=== PATIENT | female | born 1965 | race Caucasian/White ===

== ENCOUNTER 2020-03-26 13:31 | Outpatient (REF) | payer OTHER, SELFPAY ==
[2020-03-26 16:27] LABS: MANUAL DIFF FLAG NO
[2020-03-26 16:31] LABS: Basophils Absolute Auto 0.1 X10*3/uL (0.0-0.2); Basophils Percent Auto 0.9 % (0-2); Eosinophils Absolute Auto 0.1 X10*3/uL (0.0-0.4); Eosinophils Percent Auto 0.9 % (0-4); Hematocrit 48.6 % (37-47); Hemoglobin 15.9 g/dl (12.0-16.0); Imm Gran Abs Auto 0.02 X10*3/uL (0.00-0.03); Imm Gran Pct Auto 0.2 % (0.0-0.4); Lymphocytes Absolute Auto 2.2 X10*3/uL (1.2-4.9); Lymphocytes Percent Auto 27.1 % (20-40); Mean Corpuscular HGB Conc 32.7 g/dl (31.0-35.0); Mean Corpuscular Volume 85.7 fL (80-98); Mean Platelet Volume 10.7 fL (9.4-12.3); Monocytes Absolute Auto 0.4 X10*3/uL (0.1-1.2); Monocytes Percent Auto 5.2 % (2-11); Neutrophils Absolute Auto 5.3 X10*3/uL (2.0-8.3); Neutrophils Percent Auto 65.7 % (45-73); Platelet Count 315 X10*3/uL (160-400); Red Blood Count 5.67 X10*6/uL (4.20-5.50); Red Cell Distribution Width 12.4 % (11.0-16.0)
[2020-03-26 16:54] LABS: Rheumatoid Factor < 15.0 IU/mL (<15.0)
[2020-03-26 16:55] LABS: Alanine Aminotransferase 33 U/L (0-31); Albumin Level 4.8 g/dL (3.5-5.0); Alkaline Phosphatase 69 U/L (39-117); Anion Gap 16 (12-20); Aspartate Amino Transferase 22 U/L (5-31); Bilirubin Total 0.6 mg/dL (0.0-1.0); Blood Urea Nitrogen 11 mg/dL (9-16); C Reactive Protein 0.16 mg/dL (< or = 0.50); Calcium 10.2 mg/dL (8.4-10.2); Carbon Dioxide 27 mmol/L (22-29); Chloride 102 mmol/L (96-108); Cholesterol 148 mg/dL; Estimated Glomerular Filt Rate > 60; Glucose Random 90 mg/dL (60-115); HDL Cholesterol 51 mg/dL; LDL Cholesterol Calculated 78 mg/dl; Potassium 4.3 mmol/l (3.3-5.1); Sodium 141 mmol/L (135-145); Total Protein 7.5 g/dL (6.5-8.0); Triglycerides 97 mg/dL; Uric Acid 5.2 mg/dL (2.4-5.7)
[2020-03-26 17:10] LABS: Erythrocyte Sedimentation Rate 2 MM/HR (0-20)
[2020-03-26 17:13] LABS: Ferritin 188 ng/mL (10-250); TSH reflex Free T4 1.15 mIU/mL (0.32-4.0)
[2020-03-27 21:47] LABS: Lyme Blot 3.46 index
[2020-03-28 13:27] LABS: Anti Nuclear Antibody Screen NEGATIVE (NEGATIVE); Antibody to SS-A Antigen <1.0 NEG AI (<1.0 NEG); Antibody to SS-B Antigen <1.0 NEG AI (<1.0 NEG)
[2020-03-29 12:03] LABS: Cyclic Citrullinated Peptide <16 UNITS
[2020-03-29 14:15] LABS: IgG P93 Abs REACTIVE; Lyme IgG Line Blot Interp. NEGATIVE (NEGATIVE)
== END 2020-03-26 13:32 | disposition home or self-care (01) ==
LOC: HO.HMGCLDS 13:31
PROVIDERS: PCP Nurse Practitioner Family; Visit Provider Nurse Practitioner Family
DX: M25.50 Pain in unspecified joint (principal); E78.5 Hyperlipidemia, unspecified
CPT/HCPCS: 36415; 80053; 80061; 82550; 82728; 84443; 84550; 85025; 85652; 86038; 86039; 86140; 86200; 86235; 86431; 86618

== ENCOUNTER 2020-07-06 12:17 | Outpatient (REF) | payer OTHER, SELFPAY ==
--- NOTE | ~2020-07-06 | XR_ITS ---
EXAMINATION: XR CERVICAL SPINE CLINICAL INFORMATION: Pain COMPARISON: None TECHNIQUE: 3 views of the cervical spine FINDINGS: Bone alignment is normal. No fracture or dislocation is seen. There is mild degenerative spondylosis at C3-C4 C4-C5 and C5-C6. Disc spaces are normal. Prevertebral soft tissues are normal. XR/XR cervical spine 3V IMPRESSION: Mild degenerative spondylosis from C3-C4 to C5-C6.
[2020-07-07 06:42] LABS: Lyme Blot 3.25 index
[2020-07-12 11:47] LABS: 18 KD (IgG) Band NON-REACTIVE; 23 KD (IgG) Band NON-REACTIVE; 23 KD (IgM) Band NON-REACTIVE; 28 KD (IgG) Band NON-REACTIVE; 30 KD (IgG) Band NON-REACTIVE; 39 KD (IgM) Band NON-REACTIVE; 41 KD (IgM) Band NON-REACTIVE; 45 KD (IgG) Band NON-REACTIVE; 58 KD (IgG) Band REACTIVE; 66 KD (IgG) Band NON-REACTIVE; 93 KD (IgG) Band REACTIVE; Lyme IgG Blot Interp NEGATIVE (NEGATIVE); Lyme IgM Blot Interp NEGATIVE (NEGATIVE)
== END 2020-07-06 12:18 | disposition home or self-care (01) ==
LOC: HO.XRAY 12:17
PROVIDERS: PCP Nurse Practitioner Family; Visit Provider Student in an Organized Health Care Education/Training Program
DX: M25.50 Pain in unspecified joint (principal); E78.5 Hyperlipidemia, unspecified; I10 Essential (primary) hypertension; E11.9 Type 2 diabetes mellitus without complications; F17.200 Nicotine dependence, unspecified, uncomplicated; Z88.6 Allergy status to analgesic agent; Z79.84 Long term (current) use of oral hypoglycemic drugs; Z79.899 Other long term (current) drug therapy
CPT/HCPCS: 36415; 72040; 86618; 99202

== ENCOUNTER → 2020-07-17 14:54 | Outpatient (BNVA) | payer OTHER, SELFPAY | PROVIDERS: PCP Nurse Practitioner Family; Visit Provider Student in an Organized Health Care Education/Training Program | DX: M25.50 Pain in unspecified joint (principal); M47.812 Spondylosis without myelopathy or radiculopathy, cervical region | CPT/HCPCS: 99212 ==

== ENCOUNTER 2020-08-02 10:00 | Outpatient (RCR) | payer OTHER, SELFPAY ==
--- NOTE | 2020-07-19 14:21 | MHC.PT.EP ---
[facility] [place] Office [place] [facility] [place] Office [address] Kayla Ambrocio [address] [phone] F: [phone] F: [phone] F: [phone] F: [phone] Physical Therapy Plan of Care Date of Evaluation: 07/19/20 Date of Surgery: n/a Diagnosis: Cervical spondylosis Assessment: Pt is a 55 y/o female referred to skilled PT services for cervical spondylosis. Of note, Pt also reports bilateral low back pain. However, she only has a script for cervical dysfunction and her neck bothers her more than her lower back per Pt. Pt states that her joint pain (including neck) started about 1 year ago. She was found to have a (+) Lyme Disease test, but has since tested negative after being treated with antibiotics. Assessment reveals decreased cervical AROM, impaired periscapular and rotator cuff strength, impaired posture/postural awareness, mild thoracic spinal hypomobility, pain, and tenderness to palpation. Related functional limitations include: remaining in one position for an extended period of time, sleeping, lifting, driving, reaching, reaching, and turning too fast. Pt will benefit from skilled PT services 1x/week (copay) for 10 weeks in order to reduce impairments and improve limitations. Frequency and Duration: The patient will be seen 1x/week for 10 weeks Short Term Goals: -In 3 weeks, Pt to improve cervical ROM in all impaired directions by at least 8 degrees. -In 4 weeks, Pt to report <6/10 pain w/ AROM of the cervical spine and shoulders. [facility] Goals: -In 9 weeks, Pt will demonstrate I w/ HEP consisting of upper body strengthening program, posture, and stretching. -In 10 weeks, Pt will improve NDI by at least 9 points. Treatment Plan: Modalities to reduce pain, spasms and effusion. Manual therapy to restore motion and function. Therapeutic exercise to improve strength and flexibility. Neuromuscular re-education for posture and balance. Therapeutic activities to return to functional activities of daily living. Electronically signed by: Marissa Reina PT, DPT Please sign and return to therapist. Thank you for your referral.
== END 2021-04-25 13:20 | disposition home or self-care (01) ==
LOC: HO.PT 10:00
PROVIDERS: Visit Provider Student in an Organized Health Care Education/Training Program
DX: M47.812 Spondylosis without myelopathy or radiculopathy, cervical region (principal)
CPT/HCPCS: 97110; 97140; 97161

== ENCOUNTER 2020-12-17 10:57 | Outpatient (REF) | payer OTHER, SELFPAY ==
[2020-12-17 14:28] LABS: Glucose Urine UA NEG (NEG); Leukocyte Esterase Urine NEG (NEG); Nitrite Urine NEG (NEG); Urine Blood NEG (NEG); Urine Ketones NEG (NEG); Urine Protein NEG (NEG-TRACE)
[2020-12-17 14:32] LABS: Appearance Urine CLEAR; Color Urine YELLOW
[2020-12-17 14:43] LABS: Microalbumin Urine < 5.0 mg/L
[2020-12-17 14:51] LABS: Estimated Average Glucose 140 mg/dL; Hemoglobin A1c % 6.5 %
[2020-12-17 14:59] LABS: TSH reflex Free T4 0.98 uIU/mL (0.32-4.0)
[2020-12-17 15:28] LABS: Alanine Aminotransferase 31 U/L (0-31); Albumin Level 5.1 g/dL (3.5-5.0); Alkaline Phosphatase 85 U/L (39-117); Anion Gap 18 (12-20); Aspartate Amino Transferase 24 U/L (5-31); Bilirubin Total 0.5 mg/dL (0.0-1.0); Blood Urea Nitrogen 14 mg/dL (9-16); Calcium 10.5 mg/dL (8.4-10.2); Carbon Dioxide 24 mmol/L (22-29); Chloride 101 mmol/L (96-108); Cholesterol 150 mg/dL; Estimated Glomerular Filt Rate > 60; Glucose Fasting 112 mg/dL (60-99); HDL Cholesterol 52 mg/dL; LDL Cholesterol Calculated 76 mg/dl; Potassium 5.4 mmol/L (3.3-5.1); Sodium 138 mmol/L (135-145); Triglycerides 112 mg/dL
== END 2020-12-17 10:58 | disposition home or self-care (01) ==
LOC: HO.HMGCLDS 10:57
PROVIDERS: PCP Nurse Practitioner Family; Visit Provider Nurse Practitioner Family
DX: E11.9 Type 2 diabetes mellitus without complications (principal)
CPT/HCPCS: 36415; 80053; 80061; 81003; 82043; 83036; 84443

== ENCOUNTER 2020-12-20 08:57 | Outpatient (REF) | payer OTHER, SELFPAY ==
[2020-12-20 11:38] LABS: Potassium 4.2 mmol/L (3.3-5.1)
== END 2020-12-20 08:58 | disposition home or self-care (01) ==
LOC: HO.HMGCLDS 08:57
PROVIDERS: PCP Nurse Practitioner Family; Visit Provider Nurse Practitioner Family
DX: E87.5 Hyperkalemia (principal)
CPT/HCPCS: 36415; 84132

== ENCOUNTER 2021-01-31 10:28 | Outpatient (REF) | payer OTHER, SELFPAY ==
--- NOTE | ~2021-01-31 | MM_ITS ---
EXAMINATION: MM SCREENING DIGITAL BREAST TOMOSYNTHESIS, BILATERAL CLINICAL INFORMATION: Screening. Asymptomatic. The lifetime risk of breast cancer based on the Tyrer-Cuzick Model is 6%. COMPARISON: Mammography: 10/15/2018, 10/14/2015, 05/04/2014, 04/17/2014; diagnostic right breast ultrasound 11/13/2015, diagnostic left breast ultrasound 05/04/2014. TECHNIQUE: Digital breast tomosynthesis is performed in both the craniocaudal and mediolateral oblique views along with computer-aided detection (CAD). Synthesized 2D images are generated from the tomosynthesis. FINDINGS: There are scattered areas of fibroglandular density (ACR BI-RADS breast composition Category b). Bilateral nodularity and fibrocystic changes are decreased over time since 2013. Dominant nodule/cyst right breast mid 9:00 position is substantially decreased as well since prior study 2018. There is no interval dominant mass or architectural abnormality or developing density. No abnormal calcifications. The axilla and skin contours are unremarkable. MM/MM tomosynthesis screening BI IMPRESSION: Fibrocystic changes decreased since prior studies. No significant changes. ASSESSMENT: BI-RADS 2: Benign RECOMMENDATION: Routine annual mammography screening. This patient's information was entered into a reminder system with a target due date for their next mammogram.
== END 2021-01-31 10:29 | disposition home or self-care (01) ==
LOC: HO.MAMMO 10:28
PROVIDERS: Visit Provider Nurse Practitioner Family
DX: Z12.31 Encounter for screening mammogram for malignant neoplasm of breast (principal)
CPT/HCPCS: 77063; 77067

== ENCOUNTER 2021-05-02 09:02 | Outpatient (REF) | payer MEDICAID, SELFPAY ==
[2021-05-02 11:36] LABS: Appearance Urine CLEAR; Color Urine YELLOW; Glucose Urine UA NEG (NEG); Leukocyte Esterase Urine NEG (NEG); Nitrite Urine NEG (NEG); PH 5.5 (5.0-8.0); Urine Blood NEG (NEG); Urine Ketones NEG (NEG); Urine Protein NEG (NEG-TRACE)
[2021-05-02 11:40] LABS: Estimated Average Glucose 154 mg/dL
[2021-05-02 12:13] LABS: Alanine Aminotransferase 30 U/L (0-31); Albumin Level 4.6 g/dL (3.5-5.0); Alkaline Phosphatase 74 U/L (39-117); Anion Gap 13 (12-20); Aspartate Amino Transferase 22 U/L (5-31); Bilirubin Total 0.4 mg/dL (0.0-1.0); Blood Urea Nitrogen 13 mg/dL (9-16); Calcium 10.1 mg/dL (8.4-10.2); Carbon Dioxide 28 mmol/L (22-29); Chloride 104 mmol/L (96-108); Cholesterol 160 mg/dL; Estimated Glomerular Filt Rate > 60; Glucose Fasting 120 mg/dL (60-99); HDL Cholesterol 49 mg/dL; LDL Cholesterol Calculated 80 mg/dl; Potassium 4.8 mmol/L (3.3-5.1); Sodium 140 mmol/L (135-145); Total Protein 7.5 g/dL (6.5-8.0); Triglycerides 158 mg/dL
[2021-05-02 12:31] LABS: Creatinine Urine 136.98 mg/dL; Microalbum/Creatinine Ratio Ur 5.8 ug/mg cr
== END 2021-05-02 09:03 | disposition home or self-care (01) ==
LOC: HO.HMGCLDS 09:02
PROVIDERS: PCP Nurse Practitioner Family; Visit Provider Nurse Practitioner Family
DX: Z00.00 Encounter for general adult medical examination without abnormal findings (principal); E11.9 Type 2 diabetes mellitus without complications
CPT/HCPCS: 36415; 80053; 80061; 81003; 82043; 83036; 84443

== ENCOUNTER 2021-06-12 08:05 | Outpatient (REF) | payer OTHER, SELFPAY ==
--- NOTE | ~2021-06-12 | MR_ITS ---
EXAMINATION: MR BRAIN WITHOUT CONTRAST CLINICAL INFORMATION: Dizziness and giddiness. COMPARISON: None available. TECHNIQUE: MRI of the brain was obtained using routine sequences without contrast. FINDINGS: No focal restricted diffusion is demonstrated to suggest acute or subacute cerebral ischemia. No evidence of acute or chronic hemorrhagic products on heme-sensitive imaging. Scattered periventricular and deep white matter T2 FLAIR hyperintensities predominantly within the left frontal lobe. The ventricles are normal in morphology and size. No abnormal mass effect. No midline shift. Normal appearance of the pituitary gland. Normal positioning of the cerebellar tonsils. Normal arterial and venous vascular flow voids are present. Normal, homogeneous marrow signal. Mild mucosal thickening of the paranasal sinuses. No signal abnormalities within the mastoids. MR/MR head/brain wo con IMPRESSION: 1. No acute intracranial abnormalities. 2. Mild nonspecific white matter changes predominantly within the left frontal lobe, most commonly seen in the setting of microangiopathy.
== END 2021-06-12 08:06 | disposition home or self-care (01) ==
LOC: HO.MRI 08:05
PROVIDERS: PCP Nurse Practitioner Family; Visit Provider Nurse Practitioner Family
DX: R42 Dizziness and giddiness (principal); H43.399 Other vitreous opacities, unspecified eye
CPT/HCPCS: 70551

== ENCOUNTER 2021-07-24 15:11 | Outpatient (REF) | payer OTHER, SELFPAY ==
[2021-07-24 16:27] LABS: MANUAL DIFF FLAG NO
[2021-07-24 16:44] LABS: Basophils Absolute Auto 0.1 X10*3/uL (0.0-0.2); Basophils Percent Auto 0.6 % (0-2); Eosinophils Absolute Auto 0.1 X10*3/uL (0.0-0.4); Eosinophils Percent Auto 0.8 % (0-4); Hematocrit 50.4 % (37.0-47.0); Hemoglobin 16.8 g/dl (12.0-16.0); Imm Gran Abs Auto 0.05 X10*3/uL (0.00-0.03); Imm Gran Pct Auto 0.4 % (0.0-0.4); Lymphocytes Absolute Auto 2.7 X10*3/uL (1.2-4.9); Mean Corpuscular HGB Conc 33.3 g/dl (31.0-35.0); Mean Corpuscular Hemoglobin 28.3 pg (27.0-33.0); Mean Corpuscular Volume 84.8 fL (80.0-98.0); Mean Platelet Volume 11.4 fL (9.4-12.3); Monocytes Absolute Auto 0.8 X10*3/uL (0.1-1.2); Monocytes Percent Auto 5.9 % (2-11); Neutrophils Absolute Auto 9.3 x10*3/uL (2.0-8.3); Neutrophils Percent Auto 71.3 % (45-73); Platelet Count 330 X10*3/uL (160-400); Red Blood Count 5.94 X10*6/uL (4.20-5.50)
[2021-07-24 16:45] LABS: Appearance Urine CLEAR; Color Urine YELLOW; Glucose Urine UA NEG (NEG); Leukocyte Esterase Urine NEG (NEG); Nitrite Urine NEG (NEG); Specific Gravity - Urine 1.015 (1.005-1.025); Urine Blood NEG (NEG); Urine Ketones NEG (NEG); Urine Protein NEG (NEG-TRACE)
[2021-07-24 17:05] LABS: Estimated Average Glucose 143 mg/dL; Hemoglobin A1c % 6.6 %
[2021-07-24 17:21] LABS: Alanine Aminotransferase 28 U/L (0-31); Albumin Level 5.1 g/dL (3.5-5.0); Alkaline Phosphatase 81 U/L (39-117); Anion Gap 19 (12-20); Aspartate Amino Transferase 22 U/L (5-31); Bilirubin Total 0.5 mg/dL (0.0-1.0); Blood Urea Nitrogen 17 mg/dL (9-16); Calcium 10.6 mg/dL (8.4-10.2); Carbon Dioxide 26 mmol/L (22-29); Chloride 98 mmol/L (96-108); Cholesterol 137 mg/dL; Estimated Glomerular Filt Rate > 60; Glucose Fasting 105 mg/dL (60-99); HDL Cholesterol 50 mg/dL; Potassium 4.5 mmol/L (3.3-5.1); Sodium 138 mmol/L (135-145)
[2021-07-24 17:31] LABS: LDL Cholesterol Calculated 58 mg/dl; Triglycerides 149 mg/dL
[2021-07-24 17:39] LABS: TSH reflex Free T4 1.76 uIU/mL (0.32-4.0)
[2021-07-26 01:01] LABS: Rubeola IgG (Measles) >300.00 AU/mL
== END 2021-07-24 15:12 | disposition home or self-care (01) ==
LOC: HO.HMGCLDS 15:11
PROVIDERS: PCP Nurse Practitioner Family; Visit Provider Nurse Practitioner Family
DX: Z01.84 Encounter for antibody response examination (principal); E11.9 Type 2 diabetes mellitus without complications; Z28.39 Other underimmunization status
CPT/HCPCS: 36415; 80053; 80061; 81003; 83036; 84443; 85025; 86735; 86762; 86765

== ENCOUNTER 2021-07-26 10:17 | Outpatient (REF) | payer OTHER, SELFPAY ==
[2021-07-26 11:37] LABS: MANUAL DIFF FLAG NO
[2021-07-26 11:51] LABS: Basophils Absolute Auto 0.1 X10*3/uL (0.0-0.2); Basophils Percent Auto 0.6 % (0-2); Eosinophils Absolute Auto 0.1 X10*3/uL (0.0-0.4); Eosinophils Percent Auto 1.1 % (0-4); Hemoglobin 15.7 g/dl (12.0-16.0); Imm Gran Abs Auto 0.04 X10*3/uL (0.00-0.03); Imm Gran Pct Auto 0.4 % (0.0-0.4); Lymphocytes Absolute Auto 2.4 X10*3/uL (1.2-4.9); Lymphocytes Percent Auto 22.5 % (20-40); Mean Corpuscular Hemoglobin 27.5 pg (27.0-33.0); Mean Corpuscular Volume 85.8 fL (80.0-98.0); Mean Platelet Volume 11.3 fL (9.4-12.3); Monocytes Absolute Auto 0.6 X10*3/uL (0.1-1.2); Monocytes Percent Auto 5.6 % (2-11); Neutrophils Absolute Auto 7.5 x10*3/uL (2.0-8.3); Neutrophils Percent Auto 69.8 % (45-73); Platelet Count 302 X10*3/uL (160-400); Red Blood Count 5.71 X10*6/uL (4.20-5.50); Red Cell Distribution Width 12.8 % (11.0-16.0); White Blood Count 10.8 X10*3/uL (4.8-10.8)
== END 2021-07-26 10:18 | disposition home or self-care (01) ==
LOC: HO.HMGCLDS 10:17
PROVIDERS: PCP Nurse Practitioner Family; Visit Provider Nurse Practitioner Family
DX: D72.829 Elevated white blood cell count, unspecified (principal)
CPT/HCPCS: 36415; 81219; 81270; 81279; 81339; 85025

== ENCOUNTER 2021-08-08 15:12 | Outpatient (REF) | payer OTHER, SELFPAY ==
[2021-08-08 16:24] LABS: MANUAL DIFF FLAG NO
[2021-08-08 16:27] LABS: Basophils Absolute Auto 0.1 X10*3/uL (0.0-0.2); Basophils Percent Auto 0.7 % (0-2); Eosinophils Absolute Auto 0.1 X10*3/uL (0.0-0.4); Eosinophils Percent Auto 0.9 % (0-4); Hematocrit 47.6 % (37.0-47.0); Hemoglobin 15.9 g/dl (12.0-16.0); Imm Gran Abs Auto 0.05 X10*3/uL (0.00-0.03); Imm Gran Pct Auto 0.4 % (0.0-0.4); Lymphocytes Absolute Auto 3.2 X10*3/uL (1.2-4.9); Lymphocytes Percent Auto 26.7 % (20-40); Mean Corpuscular HGB Conc 33.4 g/dl (31.0-35.0); Mean Corpuscular Hemoglobin 27.9 pg (27.0-33.0); Mean Corpuscular Volume 83.7 fL (80.0-98.0); Mean Platelet Volume 10.8 fL (9.4-12.3); Monocytes Absolute Auto 0.8 X10*3/uL (0.1-1.2); Monocytes Percent Auto 6.2 % (2-11); Neutrophils Absolute Auto 7.9 x10*3/uL (2.0-8.3); Neutrophils Percent Auto 65.1 % (45-73); Platelet Count 367 X10*3/uL (160-400); Red Blood Count 5.69 X10*6/uL (4.20-5.50); White Blood Count 12.1 X10*3/uL (4.8-10.8)
== END 2021-08-08 15:13 | disposition home or self-care (01) ==
LOC: HO.HMGCLDS 15:12
PROVIDERS: PCP Nurse Practitioner Family; Visit Provider Nurse Practitioner Family
DX: D72.829 Elevated white blood cell count, unspecified (principal)
CPT/HCPCS: 36415; 85025

== ENCOUNTER 2021-09-19 09:55 | Outpatient (REF) | payer OTHER, SELFPAY ==
[2021-09-19 10:43] LABS: MANUAL DIFF FLAG NO
[2021-09-19 11:30] LABS: Basophils Absolute Auto 0.1 X10*3/uL (0.0-0.2); Eosinophils Absolute Auto 0.1 X10*3/uL (0.0-0.4); Eosinophils Percent Auto 1.2 % (0-4); Hematocrit 47.8 % (37.0-47.0); Hemoglobin 15.5 g/dl (12.0-16.0); Imm Gran Abs Auto 0.05 X10*3/uL (0.00-0.03); Imm Gran Pct Auto 0.5 % (0.0-0.4); Lymphocytes Absolute Auto 2.1 X10*3/uL (1.2-4.9); Lymphocytes Percent Auto 20.6 % (20-40); Mean Corpuscular HGB Conc 32.4 g/dl (31.0-35.0); Mean Corpuscular Hemoglobin 27.5 pg (27.0-33.0); Mean Corpuscular Volume 84.9 fL (80.0-98.0); Mean Platelet Volume 10.4 fL (9.4-12.3); Monocytes Absolute Auto 0.6 X10*3/uL (0.1-1.2); Neutrophils Absolute Auto 7.3 x10*3/uL (2.0-8.3); Neutrophils Percent Auto 70.7 % (45-73); Platelet Count 340 X10*3/uL (160-400); Red Blood Count 5.63 X10*6/uL (4.20-5.50); Red Cell Distribution Width 12.8 % (11.0-16.0); White Blood Count 10.3 X10*3/uL (4.8-10.8)
== END 2021-09-19 09:56 | disposition home or self-care (01) ==
LOC: HO.LAB 09:55
PROVIDERS: Nurse Practitioner Family; Visit Provider Obstetrics & Gynecology
DX: D72.829 Elevated white blood cell count, unspecified (principal)
CPT/HCPCS: 36415; 85025

== ENCOUNTER → 2021-11-07 10:03 | Outpatient (BNVA) | payer OTHER, SELFPAY | PROVIDERS: PCP Nurse Practitioner Family; Visit Provider Nurse Practitioner | DX: D12.6 Benign neoplasm of colon, unspecified (principal); Z98.890 Other specified postprocedural states | CPT/HCPCS: 99202; 99212 ==

== ENCOUNTER 2022-01-11 13:05 | Outpatient (REF) | payer OTHER, SELFPAY ==
[2022-01-11 15:17] LABS: MANUAL DIFF FLAG NO
[2022-01-11 15:19] LABS: Basophils Absolute Auto 0.1 X10*3/uL (0.0-0.2); Basophils Percent Auto 1.1 % (0-2); Eosinophils Absolute Auto 0.1 X10*3/uL (0.0-0.4); Eosinophils Percent Auto 1.5 % (0-4); Hematocrit 44.7 % (37.0-47.0); Hemoglobin 14.7 g/dl (12.0-16.0); Imm Gran Abs Auto 0.02 X10*3/uL (0.00-0.03); Imm Gran Pct Auto 0.3 % (0.0-0.4); Lymphocytes Absolute Auto 1.5 X10*3/uL (1.2-4.9); Lymphocytes Percent Auto 19.6 % (20-40); Mean Corpuscular HGB Conc 32.9 g/dl (31.0-35.0); Mean Corpuscular Hemoglobin 27.6 pg (27.0-33.0); Mean Corpuscular Volume 83.9 fL (80.0-98.0); Mean Platelet Volume 10.5 fL (9.4-12.3); Monocytes Absolute Auto 0.7 X10*3/uL (0.1-1.2); Monocytes Percent Auto 9.4 % (2-11); Neutrophils Absolute Auto 5.1 x10*3/uL (2.0-8.3); Neutrophils Percent Auto 68.1 % (45-73); Platelet Count 346 X10*3/uL (160-400); Red Blood Count 5.33 X10*6/uL (4.20-5.50); Red Cell Distribution Width 12.8 % (11.0-16.0); White Blood Count 7.4 X10*3/uL (4.8-10.8)
[2022-01-11 15:29] LABS: Appearance Urine Clear; Color Urine Yellow; Glucose Urine UA Negative (Negative); Leukocyte Esterase Urine Trace (Negative); Nitrite Urine Negative (Negative); PH 5.5 (5.0-9.0); UMIC TRIGGER UACC YES; Urine Blood Negative (Negative); Urine Ketones Negative (Negative); Urine Protein Negative (Neg-Trace)
[2022-01-11 15:34] LABS: Bacteria Urine None Seen (None Seen); Hyaline Casts Urine 0-2 /LPF (0-2); RBC Urine 0-2 /HPF (0-2); Squamous Epithelial Cell Urine 0-2 /HPF (0-2); WBC Urine 0-5 /HPF (0-5)
[2022-01-11 15:41] LABS: Alanine Aminotransferase 33 U/L (0-31); Albumin Level 4.8 g/dL (3.5-5.0); Alkaline Phosphatase 83 U/L (39-117); Anion Gap 17 (12-20); Aspartate Amino Transferase 28 U/L (5-31); Bilirubin Total 0.4 mg/dL (0.0-1.0); Blood Urea Nitrogen 14 mg/dL (9-16); Calcium 9.6 mg/dL (8.4-10.2); Carbon Dioxide 22 mmol/L (22-29); Chloride 102 mmol/L (96-108); Cholesterol 140 mg/dL; Estimated Glomerular Filt Rate > 60; Glucose Fasting 105 mg/dL (60-99); HDL Cholesterol 51 mg/dL; LDL Cholesterol Calculated 71 mg/dl; Potassium 4.4 mmol/L (3.3-5.1); Sodium 137 mmol/L (135-145); Total Protein 7.6 g/dL (6.5-8.0); Triglycerides 92 mg/dL
[2022-01-11 16:02] LABS: TSH reflex Free T4 0.71 uIU/mL (0.32-4.0)
[2022-01-11 16:07] LABS: Estimated Average Glucose 146 mg/dL; Hemoglobin A1c % 6.7 %
== END 2022-01-11 13:06 | disposition home or self-care (01) ==
LOC: HO.HMGCLDS 13:05
PROVIDERS: PCP Nurse Practitioner Family; Visit Provider Nurse Practitioner Family
DX: E11.9 Type 2 diabetes mellitus without complications (principal)
CPT/HCPCS: 36415; 80053; 80061; 81001; 83036; 84443; 85025

== ENCOUNTER 2022-02-15 08:53 | Outpatient (REF) | payer OTHER, SELFPAY ==
--- NOTE | ~2022-02-15 | MM_ITS ---
EXAMINATION: MM SCREENING DIGITAL BREAST TOMOSYNTHESIS, BILATERAL CLINICAL INFORMATION: Screening. Asymptomatic. The lifetime risk of breast cancer based on the Tyrer-Cuzick Model is 6%. COMPARISON: Mammography: 01/31/2021, 10/15/2018, 11/13/2015 TECHNIQUE: Digital breast tomosynthesis is performed in both the craniocaudal and mediolateral oblique views along with computer-aided detection (CAD). Synthesized 2D images are generated from the tomosynthesis. FINDINGS: There are scattered areas of fibroglandular density (ACR BI-RADS breast composition Category b). Bilateral fibronodular and fibrocystic changes are symmetrically decreased since 2016. There is no significant mass or architectural abnormality or developing density. There are scattered round and some peripheral rim calcifications and vascular calcifications. The axilla and skin contours are unremarkable. No significant changes. MM/MM tomosynthesis screening BI IMPRESSION: No significant changes from prior studies. ASSESSMENT: BI-RADS 2: Benign RECOMMENDATION: Routine annual mammography screening. This patient's information was entered into a reminder system with a target due date for their next mammogram.
== END 2022-02-15 08:54 | disposition home or self-care (01) ==
LOC: HO.MAMMO 08:53
PROVIDERS: PCP Nurse Practitioner Family; Visit Provider Obstetrics & Gynecology
DX: Z12.31 Encounter for screening mammogram for malignant neoplasm of breast (principal)
CPT/HCPCS: 77063; 77067

== ENCOUNTER 2022-06-06 13:35 | Day surgery (SDC) | payer OTHER, SELFPAY ==
[2022-06-03 10:20] VITALS: BMI 29.4
[2022-06-06 14:12] VITALS: BP 111/72; PULSE 64; RESP 16; TEMP 36.8; O2SAT 98; BMI 27.4
[2022-06-06 14:18] LABS: Glucose, Whole Blood 101 mg/dL (60-115)
--- NOTE | 2022-06-06 14:30 | P.CONAN_ITS ---
HPI - Anesthesia Eval Consult details Narrative: For colonoscopy [facility] Active Problems Active Problems: All Active Problems (Updated 06/06/22 @ 13:57 by Billy Alvarenga RN) Joint pain (Acute) Polyarthralgia (Acute) Cervical spondylosis (Acute) Diabetes mellitus (Acute) Hyperkalemia (Acute) Physical exam (Acute) Screening for cervical cancer (Acute) Screening for breast cancer (Acute) Dizziness (Acute) Visual floaters (Acute) Immunizations incomplete (Acute) Anxiety as acute reaction to exceptional stress (Acute) Leukocytosis (Acute) Well woman exam (Acute) Anxiety (Acute) Tubular adenoma of colon (Acute) Dyslipidemia (Acute) Past Medical History Medical History (Updated 06/06/22 @ 13:57 by Billy Alvarenga RN) Dyslipidemia Essential hypertension History of anemia HTN (hypertension) Type 2 diabetes mellitus Family History Family History Father Unknown family medical history Mother Diabetes mellitus Sister Brain cancer Sister No problems noted. Son No problems noted. Daughter No problems noted. Daughter No problems noted. Daughter No problems noted. Family history of problems with anesthesia: No Surgical History Surgical History (Updated 06/03/22 @ 10:05 by Liz Freire RN) H/O colonoscopy History of tubal ligation History of Problems with Anesthesia: No Social History Social History Housing: House Alcohol intake: current Alcohol intake frequency: holidays/special occasions only Patient Tobacco Use Status: Former Tobacco user Quit Date: 2021 Tobacco use type: Cigarette Cigarette Packs Per Day: 0.75 e-Cigarette/Vaping Use: Never Used Second Hand Smoke Exposure: No Use of substances other than those prescribed or required for medical reasons: Yes Substance Use Frequency: Occasionally Have you been hit, kicked, punched, or otherwise hurt by someone within the past year? If so, by whom?: No Are you DNR?: No Advance Directives: No Advance Directives Information Provided: Yes (as above noted) Advance Directives on File: No Recently lost weight without trying: No Eating poorly because of decreased appetite: No Nutrition Risks: No Nutritional Risk Poor oral hygiene: No (upper partial) service: No Current occupational status: employed Current occupation: [employer] Current occupational exposures/hazards: Yes Cognitive needs: No Hearing needs: No Vision needs: No Meds Allergies Allergy/AdvReac Type Severity Reaction Status Date / Time aspirin Allergy Mild GI upset, Verified 04/30/22 10:20 nausea and vomiting Home Medications Medication Instructions Recorded Confirmed Last Taken Type blood sugar diagnostic #10 ea 01/26/20 04/30/22 Unknown History Exam Exam Date and Time: June 06, 2022 1430 Height,Weight and Vital Signs: Height 5 ft 4 in Weight 72.575 kg Last Vital Signs Temp 98.2 F 06/06/22 14:12 Pulse 64 06/06/22 14:12 Resp 16 06/06/22 14:12 BP 111/72 06/06/22 14:12 Pulse Ox 98 06/06/22 14:12 O2 Del Method 06/06/22 14:12 Pertinent Lab Results Pertinent Lab Results: Laboratory Tests 06/06/22 14:03 POC Glucose 101 Airway Mallampati Class: II TM Dist: >3cm Neck ROM: Full Heart: ok Lungs: ok Assessment and Plan Assessment Anesthesia Assessment: Anesthesia Plan Discussed and Chart Reviewed Final Anesthetic Review Family History of Problems with Anesthesia: No History of Problems with Anesthesia: No NPO: Yes ASA Class: II Final Preanesthetic Review: No Changes in Pt Med Stat, Meds/Allgs Chart Reviewed, Consent Obtained/Reviewed and Anes Risks/Benef Reviewed Patient Risk: Intermediate Procedure Risk: Low Anesthetic Plan Anesthetic Plan: MAC: and Agree w/ Assess. and Plan Disposition: Standard PACU
--- NOTE | 2022-06-06 14:31 | MHC.SHP ---
Pre-Procedural Eval Section A Date of Service: 06/06/22 The patient is an INPATIENT: No The History & Physical has been completed within 30 days and I have reviewed it.: No Section B Chief Complaint: screening, FU of colon polyps Details of Present Illness: colon cancer screening, follow-up of colon polyps Relevant Social History: Tobacco Use ( former smoker) Present Medications: see Short Stay Collaborative assessment Medical History: Significant History (Dyslipidemia Essential hypertension History of anemia Type 2 diabetes mellitus) History of Previous Operations: Relevant previous surgery/procedure and date(s) (History of tubal ligation) Allergies: Allergies Allergy/AdvReac Type Severity Reaction Status Date / Time aspirin Allergy Mild GI upset, Verified 04/30/22 10:20 nausea and vomiting Review of Systems Sugical H&P ROS: Negative: Constitution, Cardiovascular, Respiratory and Gastrointestinal Exam Surgical H&P Exam: Normal: Heart, Normal: Lungs, Normal: Extremities and Normal: Abdomen Plan Diagnosis/Plan: Unchanged I have reviewed the history and physical and performed a pertinent physical examination on my patient. No changes have occurred unless specified. Time Spent With Patient Time: Total time managing care of this patient today ____ minutes.
--- NOTE | 2022-06-06 14:38 | PM.OP ---
Brief Operative Note Date of Service: 06/06/22 Pre-op diagnosis: colon cancer screen, hx of colon polyps Post-op diagnosis: other ( COLON POLYPS, DIVERTICULOSIS, HEMORRHOIDS) Procedure: COLONOSCOPY TILL CECUM WITH BIOPSIES Surgeon: Aly Paredes MD Anesthesia: MAC Was an Family Service Worker used for this Procedure?: No Family Service Worker: Derrell Greene Estimated blood loss (mL): 0 Pathology: other (A- CECUM POLYP B- ASCENDING COLON POLYP C- TRANSVERSE COLON POLYP D- SIGMOID POLYP) Condition: stable Disposition: PACU
--- NOTE | 2022-06-06 14:39 | W.PM.OPN ---
Operative Note Operative Note Date of Service: 06/06/22 Narrative: Pre-op diagnosis: colon cancer screen, hx of colon polyps Post-op diagnosis:?other (? COLON POLYPS, DIVERTICULOSIS, HEMORRHOIDS) Surgeon: Aly Paredes MD Anesthesia:?MAC COLONOSCOPY TILL CECUM WITH BIOPSIES Consent: Indications for the procedure and potential complications of bleeding, perforation, reaction to medications and missed diagnosis were discussed with the patient and informed consent was obtained. Instrument: Olympus PCF H 190 L variable stiffness pediatric colonoscope Monitoring: Vital signs and clinical assessment, intermittent blood pressure monitoring, continuous EKG monitoring, Pulse oximetry and Carbon Dioxide monitoring were done throughout the procedure. Colon withdrawl time was 17 minutes. Procedure: The patient was placed in the left lateral decubitis position and pre-procedure medications were administered. After a digital rectal examination of the ano-rectum, the video colonoscope was inserted into the rectum and advanced through the colon to the cecum. The colonoscope was slowly withdrawn in a retrograde panoramic fashion and the colon mucosa was carefully examined including a retroflexed view of the rectum. Findings and interventions are described below. Procedure Difficulty: Without difficulty Findings: Terminal Ileum: Not evaluated Cecum: A 5-6 mm sessile polyp - removed with a cold bx Ascending Colon: A 2-3 mm sessile polyp - removed with a cold bx Transverse Colon: A 5-6 mm sessile polyp - removed with a cold bx Descending Colon: moderate diverticulosis Sigmoid Colon: A 4-5 mm sessile polyp - removed with a cold bx. Moderate diverticulosis Rectum: Normal Ano-rectum: Moderate internal hemorrhoids Colon preparation: Good after some irrigation Impression and Post Procedure Diagnosis: Colonoscopy Findings: Four small polyps removed Moderate diverticulosis seen in the left colon Moderate hemorrhoids on retroflexed exam. Plan: Await pathology results Patient has an appointment on 06/20/22 in the GI Clinic with Saba Husain NP. Repeat Colonoscopy interval based on path results - in 3-5 years if polyps are adenomatous and due to a hx of adenomatous colon polyps. Above findings were reviewed with the patient and colon polyps and diverticulosis handouts were given in the discharge area
[2022-06-06 15:15] VITALS: BP 107/66; PULSE 70; RESP 16; TEMP 36.5; O2SAT 95
[2022-06-06 15:27] VITALS: BP 111/61; PULSE 66; RESP 16; TEMP 36.8; O2SAT 96
== END 2022-06-06 15:45 | disposition home or self-care (01) ==
PROVIDERS: PCP Nurse Practitioner Family; Visit Provider Internal Medicine Gastroenterology
PROC: 0DJD8ZZ Inspection of Lower Intestinal Tract, Via Natural or Artificial Opening Endoscopic (ICD-10-PCS; CPT 45378; principal; 2022-06-06 14:40)
DX: Z12.11 Encounter for screening for malignant neoplasm of colon (principal); Z86.010 Personal history of colon polyps; D12.0 Benign neoplasm of cecum; D12.3 Benign neoplasm of transverse colon; D12.5 Benign neoplasm of sigmoid colon; K63.5 Polyp of colon; K57.30 Diverticulosis of large intestine without perforation or abscess without bleeding; K64.8 Other hemorrhoids; I10 Essential (primary) hypertension; E11.9 Type 2 diabetes mellitus without complications; E78.00 Pure hypercholesterolemia, unspecified; Z79.84 Long term (current) use of oral hypoglycemic drugs; Z79.899 Other long term (current) drug therapy; Z88.8 Allergy status to other drugs, medicaments and biological substances; Z87.891 Personal history of nicotine dependence
CPT/HCPCS: 45380; 82947; 88305; J3010

== ENCOUNTER 2022-09-06 08:22 | Outpatient (REF) | payer OTHER, SELFPAY ==
[2022-09-06 11:07] LABS: MANUAL DIFF FLAG NO
[2022-09-06 11:11] LABS: Appearance Urine Clear; Color Urine Yellow; Glucose Urine UA Negative (Negative); Leukocyte Esterase Urine Negative (Negative); Nitrite Urine Negative (Negative); PH 5.5 (5.0-9.0); Urine Blood Negative (Negative); Urine Ketones Negative (Negative); Urine Protein Negative (Neg-Trace)
[2022-09-06 11:11] LABS: Basophils Absolute Auto 0.1 X10*3/uL (0.0-0.2); Basophils Percent Auto 0.8 % (0-2); Eosinophils Absolute Auto 0.2 X10*3/uL (0.0-0.4); Hematocrit 47.2 % (37.0-47.0); Hemoglobin 15.2 g/dl (12.0-16.0); Imm Gran Abs Auto 0.07 X10*3/uL (0.00-0.03); Imm Gran Pct Auto 0.8 % (0.0-0.4); Lymphocytes Absolute Auto 2.4 X10*3/uL (1.2-4.9); Lymphocytes Percent Auto 27.4 % (20-40); Mean Corpuscular HGB Conc 32.2 g/dl (31.0-35.0); Mean Corpuscular Hemoglobin 27.2 pg (27.0-33.0); Mean Corpuscular Volume 84.4 fL (80.0-98.0); Mean Platelet Volume 10.2 fL (9.4-12.3); Monocytes Absolute Auto 0.7 X10*3/uL (0.1-1.2); Monocytes Percent Auto 7.9 % (2-11); Neutrophils Absolute Auto 5.3 x10*3/uL (2.0-8.3); Neutrophils Percent Auto 61.1 % (45-73); Platelet Count 329 X10*3/uL (160-400); Red Blood Count 5.59 X10*6/uL (4.20-5.50); Red Cell Distribution Width 12.7 % (11.0-16.0); White Blood Count 8.7 X10*3/uL (4.8-10.8)
[2022-09-06 11:41] LABS: Alanine Aminotransferase 31 U/L (0-31); Albumin Level 4.6 g/dL (3.5-5.0); Alkaline Phosphatase 69 U/L (39-117); Anion Gap 11 (12-20); Aspartate Amino Transferase 26 U/L (5-31); Bilirubin Total 0.4 mg/dL (0.0-1.0); Blood Urea Nitrogen 18 mg/dL (9-16); Calcium 9.9 mg/dL (8.4-10.2); Carbon Dioxide 28 mmol/L (22-29); Chloride 105 mmol/L (96-108); Cholesterol 169 mg/dL; Estimated Glomerular Filt Rate > 60; Glucose Fasting 131 mg/dL (60-99); HDL Cholesterol 63 mg/dL; LDL Cholesterol Calculated 92 mg/dl; Potassium 4.5 mmol/L (3.3-5.1); Sodium 139 mmol/L (135-145); Total Protein 7.3 g/dL (6.5-8.0); Triglycerides 72 mg/dL
[2022-09-06 11:45] LABS: TSH reflex Free T4 0.83 uIU/mL (0.32-4.0)
[2022-09-06 11:45] LABS: Creatinine Urine 23.19 mg/dL; Microalbumin Urine < 5.0 mg/L
== END 2022-09-06 08:23 | disposition home or self-care (01) ==
LOC: HO.HMGCLDS 08:22
PROVIDERS: PCP Nurse Practitioner Family; Visit Provider Nurse Practitioner Family
DX: E11.9 Type 2 diabetes mellitus without complications (principal)
CPT/HCPCS: 36415; 80053; 80061; 81003; 82043; 84443; 85025

== ENCOUNTER 2022-11-20 11:34 | Outpatient (AMB) | payer OTHER, SELFPAY ==
[2022-11-20 11:37] VITALS: BP 118/72; PULSE 73; O2SAT 97; BMI 28.3
--- NOTE | 2022-11-20 11:37 | A.OFFPC_ITS ---
Vital Signs 11/20/22 11:37 Height 5 ft 4 in Weight 165 lb BMI 28.3 BP 118/72 Blood Pressure Location Lt brachial Position Sitting Pulse 73 Pulse Source Pulse Oximeter Pulse Oximetry (%) 97 Oxygen Delivery Method Room Air Intake Visit Reasons: Annual PE Allergies aspirin Allergy (Mild, Verified 11/20/22 11:39) GI upset, nausea and vomiting Tobacco use date assessed: 11/20/22 Dental Screening Dental Screen Date: 11/20/22 Did you have a dental visit in the last 12 months?: No Did you have a dental problem in the last 6 months where you did not have access to dental care?: No Was dental information given to patient?: No HPI Annual PE HPI Details Pt is here for a PE. Will order labs. Colon screen is up to date. Mammo is up to date. 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 Pt is a diabetic, on an ARB and a statin. A1c in office today is 6.6. Microalbumin is up to date. Denies polyuria, polydipsia, and neuropathy. Pt denies any signs and symptoms of hypoglycemia and does know how to correct it. Hx of hyperkalemia, will order labs. ON LICENSE OF [facility] Medical History Dyslipidemia Essential hypertension History of anemia HTN (hypertension) Type 2 diabetes mellitus Surgical History H/O colonoscopy History of tubal ligation Family History Father Unknown family medical history Mother Diabetes mellitus Sister Brain cancer Sister No problems noted. Son No problems noted. Daughter No problems noted. Daughter No problems noted. Daughter No problems noted. Social History Housing: House Alcohol intake: current Alcohol intake frequency: holidays/special occasions only Patient Tobacco Use Status: Former Tobacco user Quit Date: 2021 Tobacco use type: Cigarette Cigarette Packs Per Day: 0.75 e-Cigarette/Vaping Use: Never Used Second Hand Smoke Exposure: No service: No Current occupational status: employed Current occupation: [employer] Current occupational exposures/hazards: Yes Cognitive needs: No Hearing needs: No Vision needs: No Female Reproductive History Menstrual Age of Menarche: 11 Questionnaire Thrive Questionnaire Date Thrive assessed: 04/30/21 HONG-7 AMB Questionnaire HONG-7 Date HONG - 7 assessed: 04/30/21 Source: Developed by Drs. Prateek Thacker, Luna Reza, Bubba Lowe and colleagues, with an educational vin from [employer]. Review of Systems Const Denies chills and Denies fever(s) Eyes Denies blurry vision ENT Denies vertigo, Denies dizziness and Denies sore throat Card Denies chest pain at rest, Denies chest pain with activity, Denies diaphoresis, Denies dyspnea and Denies dyspnea on exertion Resp Denies cough, Denies dyspnea, Denies dyspnea on exertion and Denies wheezing GI Denies abdominal pain, Denies melena, Denies hematochezia, Denies constipation, Denies diarrhea and Denies loose stools Denies hematuria Musc Denies numbness and Denies tingling Skin/Breast Denies lesions Neuro Denies vertigo, Denies dizziness, Denies numbness and Denies tingling Psych Denies anxiety, Denies depression, Denies homicidal ideation, Denies suicidal ideation and Denies other (substance abuse) Aller/Immun Denies wheezing Physical exam (Primary Care) Vital Signs: Last Vital Signs Pulse 73 11/20/22 11:37 BP 118/72 11/20/22 11:37 Pulse Ox 97 11/20/22 11:37 Oxygen Delivery Method Room Air 11/20/22 11:37 BMI result Body Mass Index 28.3 Tobacco/Smoking Status: Tobacco use Status Tobacco use date assessed 11/20/22 11/20/22 11:42 Patient Tobacco Use Status Former Tobacco user 11/20/22 11:42 Tobacco use type Cigarette 11/20/22 11:42 e-Cigarette/Vaping Use Never Used 11/20/22 11:42 Thrive Assessment: Date of Thrive Assessment Date Thrive assessed 04/30/21 11/20/22 11:42 Const General: cooperative Nutritional Appearance: well nourished Orientation/consciousness: patient oriented x3 HENMT Head: Yes normal to inspection, Yes normocephalic and Yes atraumatic Ears: TM's normal bilaterally Eyes General: appearance normal, both eyes and all related structures Alignment and Position: alignment normal and position normal Neck Neck: Yes normal visual inspection and Yes no lymphadenopathy Thyroid: Thyroid normal Resp Effort & Inspection: normal respiratory effort Auscultation: clear to auscultation bilaterally Cardio Rate: regular rate Rhythm: regular rhythm Heart sounds: S1 normal heart sound present, S2 normal heart sound present and Murmur heart sound present systolic GI Palpation (GI): Soft to palpation and nontender Auscultation: normal bowel sounds Skin Rashes: no rashes Neuro General: patient oriented x3, moves all extremities, no focal motor deficits and deep tendon reflexes 2+ bilaterally Romberg Test: Negative Extrem Other: bilat feet: + sensation with use of monofilament, feet intact Psych Appearance: grossly normal Mental Status: mental status grossly normal Speech and movement: Normal speech and movement present Affect: normal affect Attitude: cooperative Thought process: Normal thought process present Thought content: Normal thought content present Insight: Good insight present (Psych) Judgement: Good judgement present (Psych) Results AMB Hemoglobin A1c AMB Hemoglobin A1c 6.6 % Last Edit by Aubree Myers CMA on 11/20/22 12: 07 Immunizations pneumoc 20-cj conj-dip cr(PF) Performing Provider: IGNACIO Martini Administered by: Lilliana Jacob RN on 11/20/22 12:25 Dose Route Admin Location Lot Number Expiration Date NDC Operator/Assistant Foreman 0.5 mL IM Left Deltoid [id number] 01/18/24 8702-2609-72 [employer] VIS Given Date VIS Provided VIS Publication Date 11/20/22 Single Vaccine 21 Eligibility Eligibility Date Funding Source Not [facility] Eligible 11/20/22 Private Results Reviewed Results Reviewed: Laboratory Last Values Hgb A1c (Clinic) 6.6 % (4.0-6.0) H 11/20/22 12:05 Assessment and Plan Assessment & Plan (1) Physical exam: Code(s): Z00.00 - Encounter for general adult medical examination without abnormal findings Plan: Labs ordered (2) Systolic murmur: Code(s): R01.1 - Cardiac murmur, unspecified Plan: Echo ordered (3) Diabetes mellitus: Code(s): E11.9 - Type 2 diabetes mellitus without complications Plan: Labs ordered Plan The patient agreed to the use of a medical reimbursement specialist for this encounter. Scribed for IGNACIO Woo by Lillian Loza, medical reimbursement specialist, on 11/20/2022 at 11:55 EST. Orders: Orders Comprehensive [place]. Panel Fast Today Z00.00 - Encounter for general adult medical examination without abnormal findings Lipid Panel Today Z00.00 - Encounter for general adult medical examination without abnormal findings TSH reflex Free T4 Today Z00.00 - Encounter for general adult medical examination without abnormal findings Complete Blood Count Auto Diff Today Z00.00 - Encounter for general adult medical examination without abnormal findings UA CC w/rflx Micro + Cult Today Z00.00 - Encounter for general adult medical examination without abnormal findings CA echo transthoracic complete Today R01.1 - Cardiac murmur, unspecified Pneumococcal 20 Immunization Today Z23 - Encounter for immunization AMB Hemoglobin A1c Today E11.9 - Type 2 diabetes mellitus without complications Medications: New pneumoc 20-cj conj-dip cr(PF) 0.5 mL IM ONCE 0.5 mL 0RF Z23 - Encounter for immunization Coding Level of Care Code Est Pt Prev Care 40-64y([id number]) Diagnoses Physical exam Z00.00 Systolic murmur R01.1 Diabetes mellitus E11.9
== END 2022-11-20 14:01 | disposition home or self-care (01) ==
PROVIDERS: PCP Nurse Practitioner Family; Visit Provider Nurse Practitioner Family
DX: Z00.00 Encounter for general adult medical examination without abnormal findings (principal); R01.1 Cardiac murmur, unspecified; E11.9 Type 2 diabetes mellitus without complications; Z23 Encounter for immunization
CPT/HCPCS: 83036; 90471; 90677; 99396

== ENCOUNTER 2022-11-20 12:26 | Outpatient (REF) | payer OTHER, SELFPAY ==
[2022-11-20 16:28] LABS: MANUAL DIFF FLAG NO
[2022-11-20 16:36] LABS: Basophils Absolute Auto 0.1 X10*3/uL (0.0-0.2); Eosinophils Absolute Auto 0.1 X10*3/uL (0.0-0.4); Eosinophils Percent Auto 1.4 % (0-4); Hematocrit 48.1 % (37.0-47.0); Hemoglobin 15.6 g/dl (12.0-16.0); Imm Gran Abs Auto 0.02 X10*3/uL (0.00-0.03); Imm Gran Pct Auto 0.2 % (0.0-0.4); Lymphocytes Absolute Auto 1.9 X10*3/uL (1.2-4.9); Lymphocytes Percent Auto 22.2 % (20-40); Mean Corpuscular HGB Conc 32.4 g/dl (31.0-35.0); Mean Corpuscular Hemoglobin 27.3 pg (27.0-33.0); Mean Corpuscular Volume 84.1 fL (80.0-98.0); Mean Platelet Volume 10.3 fL (9.4-12.3); Monocytes Absolute Auto 0.5 X10*3/uL (0.1-1.2); Monocytes Percent Auto 5.6 % (2-11); Neutrophils Absolute Auto 5.8 x10*3/uL (2.0-8.3); Neutrophils Percent Auto 69.6 % (45-73); Platelet Count 341 X10*3/uL (160-400); Red Blood Count 5.72 X10*6/uL (4.20-5.50); Red Cell Distribution Width 12.9 % (11.0-16.0); White Blood Count 8.4 X10*3/uL (4.8-10.8)
[2022-11-20 16:54] LABS: Appearance Urine Clear; Color Urine Yellow; Glucose Urine UA Negative (Negative); Leukocyte Esterase Urine Negative (Negative); Nitrite Urine Negative (Negative); PH 5.5 (5.0-9.0); Urine Blood Negative (Negative); Urine Ketones Negative (Negative); Urine Protein Negative (Neg-Trace)
[2022-11-20 16:58] LABS: Alanine Aminotransferase 32 U/L (0-31); Albumin Level 4.7 g/dL (3.5-5.0); Alkaline Phosphatase 75 U/L (39-117); Anion Gap 17 (12-20); Aspartate Amino Transferase 23 U/L (5-31); Bilirubin Total 0.4 mg/dL (0.0-1.0); Blood Urea Nitrogen 14 mg/dL (9-16); Calcium 9.9 mg/dL (8.4-10.2); Carbon Dioxide 20 mmol/L (22-29); Chloride 106 mmol/L (96-108); Cholesterol 172 mg/dL; Estimated Glomerular Filt Rate > 60; Glucose Fasting 115 mg/dL (60-99); HDL Cholesterol 61 mg/dL; LDL Cholesterol Calculated 83 mg/dl; Potassium 4.1 mmol/L (3.3-5.1); Sodium 139 mmol/L (135-145); Total Protein 7.9 g/dL (6.5-8.0); Triglycerides 142 mg/dL
[2022-11-20 17:15] LABS: TSH reflex Free T4 0.84 uIU/mL (0.32-4.0)
== END 2022-11-20 12:27 | disposition home or self-care (01) ==
LOC: HO.HMGCLDS 12:26
PROVIDERS: PCP Nurse Practitioner Family; Visit Provider Nurse Practitioner Family
DX: Z00.00 Encounter for general adult medical examination without abnormal findings (principal)
CPT/HCPCS: 36415; 80053; 80061; 81003; 84443; 85025

== ENCOUNTER 2023-02-21 09:43 | Outpatient (REF) | payer OTHER, SELFPAY ==
--- NOTE | ~2023-02-21 | MM_ITS ---
EXAMINATION: MM SCREENING DIGITAL BREAST TOMOSYNTHESIS, BILATERAL CLINICAL INFORMATION: Screening. Asymptomatic. COMPARISON: Mammography: This study is compared with prior exams dating back to 2013. TECHNIQUE: Digital breast tomosynthesis is performed in both the craniocaudal and mediolateral oblique views along with computer-aided detection (CAD). Synthesized 2D images are generated from the tomosynthesis. FINDINGS: There are scattered areas of fibroglandular density (ACR BI-RADS breast composition Category b). There is evidence of fat necrosis with benign calcification in the upper outer quadrant of the right breast. There are no significant masses, abnormal calcifications, or other abnormalities. MM/MM tomosynthesis screening BI IMPRESSION: No mammographic evidence of malignancy. ASSESSMENT: BI-RADS BI-RADS 2 - Benign Findings RECOMMENDATION: Routine annual mammography screening. 1 year F/U This examination should not preclude the clinical evaluation of a suspicious palpable abnormality. This patient's information was entered into a reminder system with a target due date for their next mammogram.
== END 2023-02-21 09:44 | disposition home or self-care (01) ==
LOC: HO.MAMMO 09:43
PROVIDERS: PCP Nurse Practitioner Family; Visit Provider Nurse Practitioner Family
DX: Z12.31 Encounter for screening mammogram for malignant neoplasm of breast (principal)
CPT/HCPCS: 77063; 77067

== ENCOUNTER → 2023-02-21 09:45 | Outpatient (BNV) | payer OTHER, SELFPAY | PROVIDERS: PCP Nurse Practitioner Family; Visit Provider Radiology Diagnostic Radiology | DX: Z12.31 Encounter for screening mammogram for malignant neoplasm of breast (principal) | CPT/HCPCS: 77063; 77067 ==

== ENCOUNTER 2023-02-21 10:10 | Emergency (ER) | payer OTHER, SELFPAY ==
--- NOTE | ~2023-02-21 | XR_ITS ---
EXAMINATION: XR KNEE, LEFT CLINICAL INFORMATION: Pain COMPARISON: Previous x-ray was recent April 2019 TECHNIQUE: Four views of the left knee. FINDINGS: Bone alignment is normal. No fracture or dislocation. Mild degenerative changes at the patellofemoral and femoral tibial joints with small osteophytes. Small patellar osteophytes at the quadriceps tendon insertion and patellar tendon origin. No joint effusion. XR/XR knee LT 4V IMPRESSION: Mild degenerative changes.
[2023-02-21 10:12] VITALS: BP 149/72; PULSE 64; RESP 18; TEMP 36.7; O2SAT 97; BMI 29.0
--- NOTE | 2023-02-21 10:21 | PC.NURSE ---
Pt reporting 3 weeks of head cold and ear pain, has been taking OTC cold medicine with some relief, she is going on vacation next month and just wants to be checked out; covid swab sent per order
--- NOTE | 2023-02-21 10:36 | ED.GENADULT ---
HPI - General Adult General Chief complaint: Upper Respiratory Symptoms Stated complaint: congestion, ear aches 3xweeks Time Seen by Provider: 02/21/23 10:19 Source: patient Mode of arrival: ambulatory Limitations: no limitations History of Present Illness HPI narrative: 58 year old female presents with fatigue, malaise, congestion, productive cough, and nasal congestion, bilateral ear discomfort for the past 3 weeks patient reports that this has not been getting better. Reports your pain is in bilateral ears however worse in the left ear. No known sick contacts. Reports she has a trip planned soon and would like to make sure she is feeling better for it. Denies chest pain, shortness of breath, nausea, vomiting, fevers, chills, headache, vision changes, dizziness and weakness. Also reports that she tripped on the steps and hit her left knee on the stairs. No head strike or loc. Not on thinners. denies numbness, tingling. Related Data Home Medications Medication Instructions Recorded Confirmed blood sugar diagnostic #10 ea 01/26/20 04/30/22 Previous Rx's Medication Instructions Recorded FreeStyle Lite Meter #1 ea 01/08/22 (blood-glucose meter) blood sugar diagnostic (OneTouch #100 ea 01/08/22 Ultra Test strips) lancets 33 gauge (OneTouch Delica #100 ea 01/08/22 Lancets) amlodipine 10 mg tablet 10 mg PO DAILY #90 tabs 11/19/22 FreeStyle Lite Strips (blood sugar #300 ea 11/28/22 diagnostic) atorvastatin 40 mg tablet 40 mg PO BEDTIME 90 days #90 tabs 01/26/23 metformin 500 mg tablet 500 mg PO BID 90 days #180 tabs 01/26/23 irbesartan 75 mg tablet 75 mg PO DAILY 90 days #90 tabs 01/30/23 hydrochlorothiazide 12.5 mg capsule 12.5 mg PO QAM #90 caps 02/18/23 amoxicillin 875 mg-potassium 1 tab PO BID 10 days #20 tabs 02/21/23 clavulanate 125 mg tablet prednisone 20 mg tablet 40 mg (2 x 20 mg) PO DAILY 5 days 02/21/23 #10 tabs Allergies Allergy/AdvReac Type Severity Reaction Status Date / Time aspirin AdvReac Mild GI upset, Verified 02/21/23 10:12 nausea and vomiting Review of Systems Review of Systems: Constitutional : No Weight loss, No Fever, No Chills, + Fatigue, + Malaise ENT/Mouth : No sore throat, No Rhinorrhea, + ear pain Eyes: No Eye Pain, No Swelling, No Redness Cardiovascular : No Chest Pain, No SOB, No Dyspnea on Exertion, No Orthopnea, No Edema, No Palpitations Respiratory : + Cough, No Sputum, No Wheezing Gastrointestinal : No Nausea, No Vomiting, No Diarrhea, No Constipation, No abdominal Pain, No Hematochezia, No Melena Genitourinary : No Dysuria, No Urinary Frequency, No Hematuria, Musculoskeletal : No joint pain, No Myalgias, No Joint Swelling Skin : No Skin Lesions, No rash Neuro : No Weakness, No Numbness, No Dizziness, No Headache Psych : No Anxiety/Panic, No Depression All other systems reviewed and are negative Yes all other systems are reviewed and are negative [facility] Past Medical History Attestation statement: The following information was validated with the patient. Source: old records reviewed and nursing notes reviewed Medical History Dyslipidemia Essential hypertension History of anemia HTN (hypertension) Type 2 diabetes mellitus Surgical History H/O colonoscopy History of tubal ligation Family History Family History Father Unknown family medical history Mother Diabetes mellitus Sister Brain cancer Sister No problems noted. Son No problems noted. Daughter No problems noted. Daughter No problems noted. Daughter No problems noted. Social History Social History Housing: House Alcohol intake: current Alcohol intake frequency: holidays/special occasions only Patient Tobacco Use Status: Former Tobacco user Quit Date: 2021 Tobacco use type: Cigarette Cigarette Packs Per Day: 0.75 e-Cigarette/Vaping Use: Never Used Second Hand Smoke Exposure: No Advance Directives: No Advance Directives Information Provided: No service: No Current occupational status: employed Current occupation: [employer] Current occupational exposures/hazards: Yes Cognitive needs: No Hearing needs: No Vision needs: No Physical Exam ED Vital Signs: Vital Signs - 24 hr 02/21/23 10:12 Temperature 98.1 F Pulse Rate 64 Respiratory Rate 18 Blood Pressure 149/72 H Pulse Oximetry 97 Oxygen Delivery Method Room Air BMI result Body Mass Index 29.0 vss Appearance: Alert.? Oriented X3.? No acute distress.? Head: Normocephalic, atraumatic, no step-offs or deformities Eyes: Pupils equal, round and reactive to light.? Ear: b/l TM and earcanals w/ errythema b/l TMS bulging. No mastoid tenderness b/l Neck: Normal inspection.? Neck supple.? CVS: Normal heart rate and rhythm.? Pulses normal.? Respiratory: No respiratory distress.? Breath sounds normal.? Abdomen: Soft and nontender.? Skin: Skin warm and dry.? Normal skin color.? Normal skin turgor.? Extremities: No lower extremity edema.? No calf ttp. 5/5 strength to bilateral upper and lower extremities Neuro: Oriented X 3.? No motor deficit.? No sensory deficit. CN 2-12 intact Course Reevaluation(s) Reevaluation #1: X-ray pending. Patient will be discharged in will call the results are positive. Educated patient on diagnosis and treatment plan, answered all question, patient verbalizes understanding. At this time patient will be discharged home, advised to return with new or worsening symptoms. Educated on worrisome signs and symptoms and when to return. At this time I feel comfortable discharge home. Time: 11:22 Medical Decision Making Medical Decision Making [facility] Narrative: 1039 58 year old female presents w/ cough, ear pain, congestions X 3 weeks PE b/l TM and earcanals w/ errythema b/l TMS bulging. No mastoid tenderness b/l The bronchitis versus sinusitis versus upper respiratory infection versus viral illness. Unlikely PE, pneumonia, no signs of acute respiratory distress. I a.m. also concerned for otitis media, no signs of otitis externa, mastoiditis or ruptured tympanic membrane. Plan will discharge home with bronchitis treatment as this has been ongoing for the past 3 weeks. Educated patient on diagnosis and treatment plan, answered all question, patient verbalizes understanding. At this time patient will be discharged home, advised to return with new or worsening symptoms. Educated on worrisome signs and symptoms and when to return. At this time I feel comfortable discharge home. Differential Diagnosis Differential Diagnoses: The differential diagnosis associated with the presentation includes The bronchitis versus sinusitis versus upper respiratory infection versus viral illness. Unlikely PE, pneumonia, no signs of acute respiratory distress.I a.m. also concerned for otitis media, no signs of otitis externa, mastoiditis or ruptured tympanic membrane. Admission/Observation Consideration of admission/observation: Escalation of care including admission/observation considered Lab Data MDM Lab Attestation statement: I reviewed the patient's lab results. Labs: Lab Results 02/21/23 Range/Units 10:18 COVID-19 ([facility]) Negative (Negative) COVID-19 Clin Com See Note Prescription Management I considered prescription management with: Antibiotic Critical Care Time Critical Care Time Critical Care Time: No Discharge Plan Discharge Clinical Impression: Bronchitis, Upper respiratory infection, Otitis media, Left knee pain Patient Disposition: Home, Self-Care Instructions: Acute Bronchitis (ED) Additional Instructions: Take your medications as prescribed. If you were prescribed antibiotics today, it is important that you take your medication to their entirety, do not skip any doses, do not finish them early. Follow-up with your primary care provider this week. Return to the emergency department with new or worsening symptoms. In case of emergency call 911 Prescriptions: New prednisone 20 mg tablet 40 mg PO DAILY 5 Days Qty: 10 0RF amoxicillin-pot clavulanate 875-125 mg tablet 1 tab PO BID 10 Days Qty: 20 0RF No Action (DME) blood-glucose meter [FreeStyle Lite Meter] Kit See Rx Instructions .Route Qty: 1 0RF Rx Instructions: tid testing amlodipine 10 mg tablet 10 mg PO DAILY Qty: 90 1RF (DME) FreeStyle Lite Strips Strip See Rx Instructions .Route Qty: 300 1RF Rx Instructions: TID testing atorvastatin 40 mg tablet 40 mg PO BEDTIME 90 Days Qty: 90 1RF metformin 500 mg tablet 500 mg PO BID 90 Days Qty: 180 1RF irbesartan 75 mg tablet 75 mg PO DAILY 90 Days Qty: 90 1RF hydrochlorothiazide 12.5 mg capsule 12.5 mg PO QAM Qty: 90 1RF (DME) blood sugar diagnostic Strip See Rx Instructions .ROUTE BID Qty: 10 Rx Instructions: As directed (DME) OneTouch Ultra Test Strip See Rx Instructions .Route Qty: 100 2RF Rx Instructions: tid testing (DME) lancets [OneTouch Delica Lancets] 33 gauge misc See Rx Instructions .Route Qty: 100 0RF Rx Instructions: test BS TID Referrals: Pa Carter FNP-BC [Primary Care Provider] - 2 days Stand Alone Forms: Work/School Release Interventions: ED Discharge Assessment Last Done: 02/21/23 11:16 Discharge Date/Time: 02/21/23 11:17
[2023-02-21 10:40] LABS: COVID-19 Test Negative (Negative); IDNOW Serial# BCCEAD1C
== END 2023-02-21 11:17 | disposition home or self-care (01) ==
PROVIDERS: Emergency Provider Emergency Medicine; PCP Nurse Practitioner Family
DX: J06.9 Acute upper respiratory infection, unspecified (principal); J40 Bronchitis, not specified as acute or chronic; H66.93 Otitis media, unspecified, bilateral; H92.03 Otalgia, bilateral; M25.562 Pain in left knee; E11.9 Type 2 diabetes mellitus without complications; I10 Essential (primary) hypertension; E78.5 Hyperlipidemia, unspecified; D64.9 Anemia, unspecified; Z87.891 Personal history of nicotine dependence; Z79.84 Long term (current) use of oral hypoglycemic drugs; Z79.02 Long term (current) use of antithrombotics/antiplatelets; Z11.52 Encounter for screening for COVID-19
CPT/HCPCS: 73564; 87635; 99283; 99284

== ENCOUNTER 2023-11-24 10:47 | Outpatient (AMB) | payer OTHER, SELFPAY ==
--- NOTE | 2023-11-24 11:05 | A.OFFPC_ITS ---
Vital Signs 11/24/23 11:13 Height 5 ft 4 in Weight 168 lb BMI 28.8 BP 142/78 H Blood Pressure Location Rt brachial Position Sitting Pulse 66 Pulse Source Pulse Oximeter Pulse Oximetry (%) 98 Oxygen Delivery Method Room Air Intake Visit Reasons: PE Intake Note: pt is here for annual exam, A1c done today Health Type Technician Required: No Allergies aspirin Adverse Reaction (Mild, Verified 11/24/23 11:05) GI upset, nausea and vomiting Medication List - Last Reconciled 11/24/23 by IGNACIO Martini amlodipine 10 mg PO DAILY atorvastatin 40 mg PO BEDTIME 90 days blood sugar diagnostic As directed blood sugar diagnostic (OneTouch Ultra Test strips) tid testing FreeStyle Lite Meter (blood-glucose meter) tid testing NS FreeStyle Lite Strips (blood sugar diagnostic) TID testing NS hydrochlorothiazide 12.5 mg PO QAM irbesartan 75 mg PO DAILY 90 days lancets (OneTouch Delica Lancets) test BS TID metformin 1,000 mg PO BID 90 days semaglutide (Ozempic) 0.25 mg (0.368 mL) subcut QWEEK 30 days Tobacco use date assessed: 11/24/23 Dental Screening Dental Screen Date: 11/24/23 Did you have a dental visit in the last 12 months?: Yes Did you have a dental problem in the last 6 months where you did not have access to dental care?: No Was dental information given to patient?: Patient has dentist HPI PE HPI Details Pt is here for a PE. Will order labs. Colon screen is up to date. Mammo is up to date. Pt is a diabetic, on an ARB and a statin. A1C in office today is 7.7. Due for microalbumin. Denies polyuria, polydipsia, and neuropathy. Pt denies any signs and symptoms of hypoglycemia and does know how to correct it. Pt reports recent tick bites. She was able to pull the ticks off. Will order tick testing. Pt quit smoking half a pack a day since age 13, quit 3 years ago. Will refer for low-dose CT. HTN: Pt is stressed today, has to get back to work [employer], most likely cause of elevation. [facility] Medical History Dyslipidemia Essential hypertension History of anemia HTN (hypertension) Type 2 diabetes mellitus Surgical History H/O colonoscopy History of tubal ligation Family History Father Unknown family medical history Mother Diabetes mellitus Sister Brain cancer Sister No problems noted. Son No problems noted. Daughter No problems noted. Daughter No problems noted. Daughter No problems noted. Social History Housing: House Alcohol intake: current Alcohol intake frequency: holidays/special occasions only Patient Tobacco Use Status: Former Tobacco user Tobacco use type: Cigarette Cigarette Packs Per Day: 0.75 e-Cigarette/Vaping Use: Never Used Second Hand Smoke Exposure: No service: No Current occupational status: employed Current occupation: [employer] Current occupational exposures/hazards: Yes Cognitive needs: No Hearing needs: No Vision needs: No Female Reproductive History Menstrual Age of Menarche: 11 Questionnaire PHQ-9 Over the last 2 weeks, how often have you been bothered by any of the following problems? 1. Little interest or pleasure in doing things: not at all 2. Feeling down, depressed, or hopeless: not at all 3. Trouble falling or staying asleep, or sleeping too much: several days 4. Feeling tired or having little energy: not at all 5. Poor appetite or overeating: not at all 6. Feeling bad about yourself - or that you are a failure or have let yourself or your family down: not at all 7. Trouble concentrating on things, such as reading the newspaper or watching television: not at all 8. Moving or speaking so slowly that other people could have noticed. Or the opposite - being so fidgety or restless that you have been moving around a lot more than usual: not at all 9. Thoughts that you would be better off or of hurting yourself in some way: not at all Total score: 1 Depression Screening Interpretation: Negative Depression Screening Done: Yes [id number] - PHQ-9 Billing: Yes Source: Developed by Drs. Prateek Thacker, Luna Reza, Bubba Lowe and colleagues, with an educational vin from [employer]. Thrive Questionnaire Date Thrive assessed: 11/24/23 I am a: Patient What is your living situation today?: I have a steady place to live Within the past 12 months, did the food you bought not last and you didn't have the money to get more?: Never true Within the past 12 months, did you worry whether your food would run out before you got money to buy more?: Never true Do you have trouble paying for medicines?: No Do you have trouble getting transportation to medical appointments?: No Do you have trouble paying your heating and electricity bill?: No Do you have trouble taking care of your child, family member or friend?: No Do you have trouble with day-to-day activities such as bathing, preparing meals, shopping, managing finances, etc.?: No Are you currently unemployed and looking for a job?: No Are you interested in more education?: Yes Please select the resources that you would like help with: Housing/Prison Currently or been in a relationship where the following occur: No concerns reported THRIVE Score: 0 AUDIT C Alcohol Use Questionnaire (AUDIT-C) 1. How often do you have a drink containing alcohol?: Monthly or less 2. How many drinks containing alcohol do you have on a typical day when you are drinking?: 1 or 2 3. How often do you have six or more drinks on one occasion?: Never Total Score: 1 Score Reviewed/Action Taken: Yes HONG-7 AMB Questionnaire HONG-7 Date HONG - 7 assessed: 11/24/23 Feeling nervous, anxious, or on edge: 0 = Not at all Not being able to stop or control worryin = Not at all Worrying too much about different things: 1 = Several days Trouble relaxin = Not at all Being so restless that it is hard to sit still: 0 = Not at all Becoming easily annoyed or irritable: 0 = Not at all Feeling afraid as if something awful might happen: 0 = Not at all Total HONG-7 score (0-4 normal; 5-9 mild; 10-14 moderate; 15-21 severe): 1 Source: Developed by Drs. Prateek Thacker, Luna Reza, Bubba Lowe and colleagues, with an educational vin from [employer]. Review of Systems Const Denies chills and Denies fever(s) Eyes Denies blurry vision ENT Denies vertigo, Denies dizziness and Denies sore throat Card Denies chest pain at rest, Denies chest pain with activity, Denies diaphoresis, Denies dyspnea and Denies dyspnea on exertion Resp Denies cough, Denies dyspnea, Denies dyspnea on exertion and Denies wheezing GI Denies abdominal pain, Denies melena, Denies hematochezia, Denies constipation, Denies diarrhea and Denies loose stools Denies hematuria Musc Denies numbness and Denies tingling Skin/Breast Denies lesions Neuro Denies vertigo, Denies dizziness, Denies numbness and Denies tingling Psych Denies anxiety, Denies depression, Denies homicidal ideation, Denies suicidal ideation and Denies other (substance abuse) Aller/Immun Denies wheezing Physical exam (Primary Care) Vital Signs: Last Vital Signs Pulse 66 11/24/23 11:13 BP 142/78 H 11/24/23 11:13 Pulse Ox 98 11/24/23 11:13 Oxygen Delivery Method Room Air 11/24/23 11:13 BMI result Body Mass Index 28.8 Tobacco/Smoking Status: Tobacco use Status Tobacco use date assessed 11/24/23 11/24/23 11:07 Patient Tobacco Use Status Former Tobacco user 11/24/23 11:07 Tobacco use type Cigarette 11/24/23 11:07 e-Cigarette/Vaping Use Never Used 11/24/23 11:07 PHQ-9: PHQ-9 Score PHQ-9: Total score 1 11/24/23 11:45 Depression Screening Interpretation: Negative Thrive Assessment: Date of Thrive Assessment Date Thrive assessed 11/24/23 11/24/23 11:07 Currently or been in a relationship where the following occur: No concerns reported Const General: cooperative Nutritional Appearance: well nourished Orientation/consciousness: patient oriented x3 HENMT Head: Yes normal to inspection, Yes normocephalic and Yes atraumatic Ears: TM's normal bilaterally Eyes General: appearance normal, both eyes and all related structures Alignment and Position: alignment normal and position normal Neck Neck: Yes normal visual inspection and Yes no lymphadenopathy Thyroid: Thyroid normal Resp Effort & Inspection: normal respiratory effort Auscultation: clear to auscultation bilaterally Cardio Rate: regular rate Rhythm: regular rhythm Heart sounds: S1 normal heart sound present, S2 normal heart sound present and Murmur heart sound present (faint) systolic GI Palpation (GI): Soft to palpation and nontender Auscultation: normal bowel sounds Skin Rashes: no rashes Neuro General: patient oriented x3, moves all extremities, no focal motor deficits and deep tendon reflexes 2+ bilaterally Romberg Test: Negative Extrem Other: bilat feet: + sensation with use of monofilament, feet intact Psych Appearance: grossly normal Mental Status: mental status grossly normal Speech and movement: Normal speech and movement present Affect: normal affect Attitude: cooperative Thought process: Normal thought process present Thought content: Normal thought content present Insight: Good insight present (Psych) Judgement: Good judgement present (Psych) Results AMB Hemoglobin A1c AMB Hemoglobin A1c 7.9 % Last Edit by Burt Hendricks CMA on 11/24/23 13: 18 Assessment and Plan Assessment & Plan (1) Tick bite: Code(s): W57.XXXA - Bitten or stung by nonvenomous insect and other nonvenomous arthropods, initial encounter Plan: Labs ordered (2) Type 2 diabetes mellitus: Code(s): E11.9 - Type 2 diabetes mellitus without complications Plan: Labs ordered (3) Physical exam: Code(s): Z00.00 - Encounter for general adult medical examination without abnormal findings Plan: Labs ordered (4) Smoker: Code(s): F17.200 - Nicotine dependence, unspecified, uncomplicated Plan: Referred for low-dose CT Plan The patient agreed to the use of a medical historian for this encounter. Scribed for SUKHI Woo by Lillian Loza medical historian, on 11/24/2023 at 11:40 EST. Orders: Orders Tick-borne Disease Molecular Today W57.XXXA - Bitten or stung by nonvenomous insect and other nonvenomous arthropods, initial encounter Complete Blood Count Auto Diff Today E11.9 - Type 2 diabetes mellitus without complications UA CC w/rflx Micro + Cult Today E11.9 - Type 2 diabetes mellitus without complications Lipid Panel Today E11.9 - Type 2 diabetes mellitus without complications CA echo transthoracic complete Today R01.1 - Cardiac murmur, unspecified Lyme IgG/IgM w/reflex to WB Today W57.XXXA - Bitten or stung by nonvenomous insect and other nonvenomous arthropods, initial encounter Comprehensive [place]. Panel Fast Today E11.9 - Type 2 diabetes mellitus without complications TSH reflex Free T4 Today E11.9 - Type 2 diabetes mellitus without complications Microalbumin, Random (w Creat) Today E11.9 - Type 2 diabetes mellitus without complications, Z00.00 - Encounter for general adult medical examination without abnormal findings AMB Hemoglobin A1c Today Z13.9 - Encounter for screening, unspecified Referrals Lung Cancer Screening Referral F17.200 - Nicotine dependence, unspecified, uncomplicated Ophthalmology Referral E11.9 - Type 2 diabetes mellitus without complications Medications: New semaglutide (Ozempic) for 4 weeks 0.25 mg (0.368 mL) subcut QWEEK 1.84 mL 0RF 30 days Changed From metformin 500 mg PO BID 90 days 180 tabs 1RF To metformin 1,000 mg PO BID 180 tabs 1RF 90 days Coding Level of Care Code Est Pt Prev Care 40-64y(98645) Diagnoses Tick bite W57.XXXA Type 2 diabetes mellitus E11.9 Physical exam Z00.00 Smoker F17.200
[2023-11-24 11:13] VITALS: BP 142/78; PULSE 66; O2SAT 98; BMI 28.8
== END 2023-11-24 11:51 | disposition home or self-care (01) ==
PROVIDERS: PCP Nurse Practitioner Family; Visit Provider Nurse Practitioner Family
DX: Z00.00 Encounter for general adult medical examination without abnormal findings (principal); T63.481A Toxic effect of venom of other arthropod, accidental (unintentional), initial encounter; E11.9 Type 2 diabetes mellitus without complications; F17.200 Nicotine dependence, unspecified, uncomplicated
CPT/HCPCS: 83036; 99396

== ENCOUNTER → 2023-12-22 14:51 | Outpatient (REF) | payer OTHER, SELFPAY ==
--- NOTE | 2023-12-22 14:55 | CA_ITS ---
Transthoracic Echocardiogram Patient (Last, First, Middle): Shantelle Esteban M Gender: Female Date of : 1965 Age: 58 Procedure Date: 12/22/2023 Procedure Type: Transthoracic Echocardiogram Location: OP Height: 162.56 cm Weight: 77.11 kg BSA: 1.83 m2 Heart Rate: bpm BP: 130 / 76 mmHg Putter In: TO Referring MD: Pa Carter [facility] Symptoms: R01.1 - Cardiac murmur, unspecified Study Quality: Fair ECG Rhythm: Sinus Conclusions: - The left ventricular systolic function is normal. The calculated ejection fraction is 68% by biplane method. - There is mild calcification of the aortic valve. - No obvious valvular pathology seen on this study. Findings Left Ventricle Normal left ventricular cavity size. There is normal left ventricular wall thickness. The left ventricular systolic function is normal. The calculated ejection fraction is 68% by biplane method. There is no evidence of regional wall motion abnormalities. Diastolic function is normal for age. Right Ventricle Normal right ventricular cavity size and systolic function. Atria Both atria are normal in size. Aortic Valve There is a normal trileaflet aortic valve. There is mild calcification of the aortic valve. There is no aortic valve stenosis. There is no aortic valve regurgitation. Mitral Valve The mitral valve appears normal. There is trace mitral valve regurgitation. There is no mitral valve stenosis. Pulmonic Valve The pulmonic valve is likely normal. Tricuspid Valve Normal tricuspid valve structure. There is mild tricuspid valve regurgitation. There is no evidence of pulmonary hypertension. Great Vessels The asc aorta is normal in size. Venous The inferior vena cava is normal in size and collapses greater than 50% with inspiration. Pericardium/Pleural There is no evidence of pericardial effusion. Prior Study Comparison No significant change compared to prior study dated: 10/15/2018. Recommendations, Care & Conclusions No obvious valvular pathology seen on this study. Measurements 2D Linear Measurements IVSd: 0.93 0.6-0.9/0.6-1.0 cm LVIDd: 4.20 3.9-5.3/4.2-5.9 cm LVIDd Index: 2.30 2.4-3.2/2.2-3.1 cm/m2 LVIDs: 2.35 2.0-3.6 cm LVPWd: 0.77 0.7-1.1 cm LA Diam: 3.20 2.7-3.8/3.0-4.0 cm LAIDs Index: 1.75 1.5-2.3 cm/m2 LV Mass: 135.89 67-162/88-224 g LV Mass Index: 74.26 43-95/49-115 g/m2 LVOT Diam: 2.00 3.0+(-)1.3 cm 2D Systolic Function EF 4C: 64.10 >55% EF 2C: 70.70 >55% EF BiP: 67.70 >55% Mitral Valve MV Pk E: 0.76 MV PK A: 0.44 MV Decel Time: 263.00 E/A: 1.70 E'Lateral: 10.00 E'Medial: 7.62 E/E' Med: 10.00 E/E' Lat: 7.60 PHT: 77.00 MVA PHT: 2.86 Decel [place]: 2.90 Aortic Valve AoV Pk Ke: 1.31 AoV Mn Ke: 0.87 AoV VTI: 0.30 AoV Pk Grad: 7.00 Aov Mn Grad: 3.00 MARU Cont.VTI: 2.65 LVOT LVOT Pk Ke: 1.16 LVOT Mn Ke: 0.72 LVOT VTI: 0.25 LVOT Pk Grad: 5.00 LVOT Mn Grad: 2.00 LVOT Diam: 2.00 LVOT Area: 3.14 Diastolic Function MV Pk E: 0.76 MV Pk A: 0.44 E/A: 1.70 E'Medial: 7.62 E/E' Med: 10.00 E' Laterial: 10.00 E/E' Lat: 7.60 Right Ventricle TAPSE (mm): 18.30 TVS' Ke: 10.10 Tricuspid Valve TR Pk Ke: 2.25 TR Pk Grad: 20.00 RA Press: 3.00 RVSP: 23.00 Great Vessels Aorta Sinus of Valsalva: 2.90 2.0-3.[address] [place]: 2.34 1.7-3.4 cm Ao Asc: 3.00 2.1-3.4 cm Updated in Other Vendor System with Status of Final Navneet Schreiber MD electronically signed on 12/23/2023 8:26:55 AM with status of Final
[2023-12-22 16:15] LABS: MANUAL DIFF FLAG NO
[2023-12-22 16:25] LABS: Basophils Absolute Auto 0.1 X10*3/uL (0.0-0.2); Basophils Percent Auto 0.7 % (0-2); Eosinophils Absolute Auto 0.1 X10*3/uL (0.0-0.4); Eosinophils Percent Auto 1.1 % (0-4); Hematocrit 44.9 % (37.0-47.0); Imm Gran Abs Auto 0.05 X10*3/uL (0.00-0.03); Imm Gran Pct Auto 0.5 % (0.0-0.4); Lymphocytes Absolute Auto 2.7 X10*3/uL (1.2-4.9); Lymphocytes Percent Auto 28.1 % (20-40); Mean Corpuscular HGB Conc 33.4 g/dl (31.0-35.0); Mean Corpuscular Hemoglobin 27.5 pg (27.0-33.0); Mean Corpuscular Volume 82.2 fL (80.0-98.0); Mean Platelet Volume 9.7 fL (9.4-12.3); Monocytes Absolute Auto 0.6 X10*3/uL (0.1-1.2); Monocytes Percent Auto 6.1 % (2-11); Neutrophils Absolute Auto 6.2 x10*3/uL (2.0-8.3); Neutrophils Percent Auto 63.5 % (45-73); Platelet Count 325 X10*3/uL (160-400); Red Blood Count 5.46 X10*6/uL (4.20-5.50); Red Cell Distribution Width 13.2 % (11.0-16.0); White Blood Count 9.7 X10*3/uL (4.8-10.8)
[2023-12-22 17:10] LABS: Appearance Urine Clear; Color Urine Yellow; Glucose Urine UA 250 mg/dL (Negative); Leukocyte Esterase Urine Negative (Negative); Nitrite Urine Negative (Negative); PH 5.5 (5.0-9.0); Specific Gravity - Urine <= 1.005 (1.005-1.025); Urine Blood Negative (Negative); Urine Ketones Negative (Negative); Urine Protein Negative (Neg-Trace)
[2023-12-22 17:18] LABS: Alanine Aminotransferase 28 U/L (0-31); Albumin Level 4.6 g/dL (3.5-5.0); Alkaline Phosphatase 66 U/L (39-117); Anion Gap 13 (12-20); Aspartate Amino Transferase 24 U/L (5-31); Bilirubin Total 0.4 mg/dL (0.0-1.0); Blood Urea Nitrogen 14 mg/dL (9-16); Calcium 9.9 mg/dL (8.4-10.2); Carbon Dioxide 25 mmol/L (22-29); Chloride 104 mmol/L (96-108); Cholesterol 167 mg/dL (<200); Estimated Glomerular Filt Rate > 60; Glucose Fasting 93 mg/dL (60-99); HDL Cholesterol 53 mg/dL (>40); LDL Cholesterol Calculated 81 mg/dL (<100); Potassium 4.3 mmol/L (3.3-5.1); Sodium 138 mmol/L (135-145); Total Protein 7.5 g/dL (6.5-8.0); Triglycerides 168 mg/dL (<150)
[2023-12-22 17:37] LABS: TSH reflex Free T4 1.05 uIU/mL (0.32-4.0)
[2023-12-22 17:39] LABS: Creatinine Urine 13.42 mg/dL; Microalbumin Urine < 5.0 mg/L
[2023-12-23 14:43] LABS: Lyme Blot 2.65 index
[2023-12-24 02:54] LABS: A. Phagocytphilium DNA,RT-PCR NOT DETECTED (NOT DETECTED); Babesia Microti DNA, RT-PCR NOT DETECTED (NOT DETECTED); Borrelia Miyamotoi,DNA RT-PCR NOT DETECTED (NOT DETECTED); E.Chaffeensis DNA RT-PCR NOT DETECTED (NOT DETECTED); Lyme(Borrelia ssp)DNA RT-PCR NOT DETECTED (NOT DETECTED)
[2023-12-24 10:53] LABS: Lyme Abs Screen POSITIVE
[2023-12-24 20:33] LABS: 18 KD (IgG) Band NON-REACTIVE; 23 KD (IgG) Band NON-REACTIVE; 23 KD (IgM) Band NON-REACTIVE; 28 KD (IgG) Band NON-REACTIVE; 30 KD (IgG) Band NON-REACTIVE; 39 KD (IgM) Band REACTIVE; 39KD (IgG) Band REACTIVE; 41 KD (IgM) Band NON-REACTIVE; 41KD (IgG) Band NON-REACTIVE; 45 KD (IgG) Band NON-REACTIVE; 58 KD (IgG) Band REACTIVE; 66 KD (IgG) Band NON-REACTIVE; 93 KD (IgG) Band REACTIVE; Lyme IgG Blot Interp NEGATIVE (NEGATIVE); Lyme IgM Blot Interp NEGATIVE (NEGATIVE)
== END ==
LOC: HO.CARD 14:51
PROVIDERS: Visit Provider Nurse Practitioner Family
DX: R01.1 Cardiac murmur, unspecified (principal); E11.9 Type 2 diabetes mellitus without complications; T14.8XXA Other injury of unspecified body region, initial encounter; W57.XXXA Bitten or stung by nonvenomous insect and other nonvenomous arthropods, initial encounter; Z00.00 Encounter for general adult medical examination without abnormal findings
CPT/HCPCS: 36415; 80053; 80061; 81003; 82043; 82570; 84443; 85025; 86617; 86618; 87468; 87469; 87478; 87484; 87798; 93306

== ENCOUNTER → 2023-12-22 14:55 | Outpatient (BNV) | payer OTHER, SELFPAY | PROVIDERS: Visit Provider Internal Medicine | DX: I35.8 Other nonrheumatic aortic valve disorders (principal); I36.1 Nonrheumatic tricuspid (valve) insufficiency | CPT/HCPCS: 93306 ==

== ENCOUNTER 2024-02-12 09:28 | Outpatient (AMB) | payer OTHER, SELFPAY ==
--- NOTE | 2024-02-12 08:00 | A.OFFVIS_ITS ---
Intake Visit Reasons: Former Smoker Allergies aspirin Adverse Reaction (Mild, Verified 11/24/23 11:05) GI upset, nausea and vomiting HPI HPI Former Smoker: Details: Initial visit for this 59yo former smoker with a 21PYH. Patient started smoking at age 13 for 43 years at 1/2ppd. She quit 3 years ago in 2020. . Denies marijuana use. Reports social second hand smoke exposure. Denies exposure to chemicals or substances like asbestos. History of exposure to bleach/ammonia in past - was hospitalized. . Denies known family history of lung cancer. Denies personal history of cancers. Denies chest CT in last year. . Reports recent travel outside the [place]. [place] this past year. Denies recent respiratory illness or recent hospitalization for respiratory issues. Admits testing positive for COVID. Admits receiving COVID Vaccine. x 3. . Denies fever, chills, new/worsening cough, hemoptysis, hoarseness or dysphagia. Denies significant chest pain, significant dyspnea or unintentional weight loss. Patient Lung Cancer Screening Questionnaire reviewed with patient by provider. . Shared Decision Making Completed. Patient meets criteria. Discussed in detail with patient, the risk vs benefit of LDCT screening. Patient consents to proceed with scan. Discussed and encouraged continued smoking cessation. [facility] Medical History (Updated 02/12/24 @ 09:40 by Gisele Garcia PA-C) HTN (hypertension) Dyslipidemia Type 2 diabetes mellitus History of anemia Personal history of nicotine dependence Tubular adenoma of colon Surgical History (Updated 12/29/23 @ 14:34 by Gisele Garcia PA-C) History of colonoscopy History of cervical biopsy History of tubal ligation Family History Father Unknown family medical history Mother Diabetes mellitus Sister Brain cancer Sister No problems noted. Son No problems noted. Daughter No problems noted. Daughter No problems noted. Daughter No problems noted. Social History (Updated 02/12/24 @ 09:40 by Gisele Garcia PA-C) Housing: House Alcohol intake: current Alcohol intake frequency: holidays/special occasions only Patient Tobacco Use Status: Former Tobacco user Tobacco use type: Cigarette Years Smoked: (onset 13yo, 1/2ppd x 43 yeats - 21pyh - quit 2020) e-Cigarette/Vaping Use: Never Used Second Hand Smoke Exposure: No service: No Current occupational status: employed Current occupation: [employer] Current occupational exposures/hazards: Yes Cognitive needs: No Hearing needs: No Vision needs: No Female Reproductive History Menstrual Age of Menarche: 11 Assessment & Plan Assessment & Plan (1) Personal history of nicotine dependence: Comment: (former smoker - onset 13yo, 1/2ppd x 43 yrs - 21pyh - quit 2020) Code(s): Z87.891 - Personal history of nicotine dependence Category: Medical Plan: - SDM visit completed today in office. - Patient meets criteria for LDCT for lung cancer screening purposes and is asymptomatic. - Smoking cessation counseling offered. Patients can always call [phone]. - Will arrange for a LDCT scan of the chest for screening purposes at [facility]. - Risks, benefits, and alternatives were discussed in detail and the patient agrees to proceed. - Risks discussed include but are not limited to: radiation exposure, anxiety during testing and while awaiting results, false negatives, false positives and possibility of additional intervention such as further imaging or surgical procedures for benign disease. - Benefits are obviously detection of lung cancer at an early stage which can lead to improved outcomes. - Discussed the importance of screening program compliance with adherence to yearly LDCT scan as scheduled - or sooner interval scans for personalized screening regimen. - Discussed follow up plan. Our office will send a letter discussing results and if needed set up phone call and office visit based on CT findings. - Patient educated on results categorization and the management decisions for suspicious findings potentially found on the screening LDCT scan. Any patient with a Lung RADS score of 3 or 4 will be reviewed by a multidisciplinary team at [facility] to form a plan of action in regards to scan findings. - If further work up is warranted for a suspicious lung finding this will be followed by the Lung Cancer Screening program in conjunction with the Thoracic Surgery Department at [facility]. - A copy of the office note and LDCT will be sent to the patient's PCP - as well as documentation on any associated further plans of care. - Incidental findings on LDCT are the PCP's responsibility. These findings are indicated with an S finding on the LDCT Assessment. A note discussing the findings will be sent to the PCP who is then responsible for further management. - All questions answered.? Coding Level of Care Code Lung Cancer Screening G0296 Diagnoses Personal history of nicotine dependence Z87.891
== END 2024-02-12 11:43 | disposition home or self-care (01) ==
PROVIDERS: PCP Nurse Practitioner Family; Visit Provider Physician Assistant Medical
DX: Z87.891 Personal history of nicotine dependence (principal)
CPT/HCPCS: G0296

== ENCOUNTER 2024-02-12 09:47 | Outpatient (REF) | payer OTHER, SELFPAY | END 2024-02-12 09:48 | disposition home or self-care (01) | LOC: HO.CT 09:47 | PROVIDERS: Visit Provider Physician Assistant Medical | DX: Z12.2 Encounter for screening for malignant neoplasm of respiratory organs (principal); Z87.891 Personal history of nicotine dependence | CPT/HCPCS: 71271; G0296 ==

== ENCOUNTER → 2024-02-27 10:00 | Outpatient (BNV) | payer OTHER, SELFPAY | PROVIDERS: PCP Nurse Practitioner Family; Visit Provider Internal Medicine | DX: Z12.31 Encounter for screening mammogram for malignant neoplasm of breast (principal) | CPT/HCPCS: 77063; 77067 ==

== ENCOUNTER 2024-02-27 10:09 | Outpatient (REF) | payer OTHER, SELFPAY ==
--- NOTE | ~2024-02-27 | MM_ITS ---
EXAMINATION: MM SCREENING DIGITAL BREAST TOMOSYNTHESIS, BILATERAL CLINICAL INFORMATION: Screening. Asymptomatic. COMPARISON: Mammography: Comparison is made with available priors TECHNIQUE: Digital breast mammography with tomosynthesis is performed in both the craniocaudal and mediolateral oblique views along with computer-aided detection (CAD). FINDINGS: There are scattered areas of fibroglandular density (ACR BI-RADS breast composition Category b). Circumscribed oval mass upper outer right breast decreased in size comparison to mammograms 2019. There are no significant masses, abnormal calcifications, or other abnormalities. MM/MM tomosynthesis screening BI IMPRESSION: No mammographic evidence of malignancy. ASSESSMENT: BI-RADS BI-RADS 2 - Benign Findings RECOMMENDATION: Routine annual mammography screening. 1 year F/U This examination should not preclude the clinical evaluation of a suspicious palpable abnormality. This patient's information was entered into a reminder system with a target due date for their next mammogram. Electronically signed by: Kendra Fields DO 03/09/2024 12:07 PM TIFFANY
== END 2024-02-27 10:10 | disposition home or self-care (01) ==
LOC: HO.MAMMO 10:09
PROVIDERS: PCP Nurse Practitioner Family; Visit Provider Nurse Practitioner Family
DX: Z12.31 Encounter for screening mammogram for malignant neoplasm of breast (principal)
CPT/HCPCS: 77063; 77067

== ENCOUNTER 2024-06-06 10:10 | Outpatient (AMB) | payer OTHER, SELFPAY ==
--- OUTSIDE RECORDS SUMMARY | 2024-06-06 10:12 | XMS_ITS | Encounter Summary ---
Author Organization [employer] Address [address] [place] [address] Care Team Providers Care Recreation Establishment Manager Name Role Phone Unavailable Primary Care Provider Unavailabl e Encounter Details Date Type Department Care Team (Latest Contact Info) Description 08/17/[address] [facility] CONVERSIONS Dental, Provider, DDS Social History Tobacco Use Types Packs/Day Years Used Date Smoking Tobacco: Never Assessed Comments Unknown Sex and Gender Information Value Date Recorded Sex Assigned at Female 02/17/2022 10:27 AM EDT Legal Sex Female 10:27 AM EDT Gender Identity Choose not to disclose 10:27 AM EDT Sexual Orientation Choose not to disclose 2021 10:27 AM EDT documented as of this encounter Plan of Treatment Not on file documented as of this encounter Visit Diagnoses Not on filedocumented in this encounter
--- OUTSIDE RECORDS SUMMARY | 2024-06-06 10:12 | XMS_ITS | Clinical Summary ---
Author Organization [employer] Address [address] [place] [address] Care Team Providers Care Account Service Representative Name Role Phone Unavailable Primary Care Provider Unavailabl e Social History Tobacco Use Types Packs/Day Years Used Date Smoking Tobacco: Never Assessed Comments Unknown Sex and Gender Information Value Date Recorded Sex Assigned at Female 02/17/2022 10:27 AM EDT Legal Sex Female 10:27 AM EDT Gender Identity Choose not to disclose 10:27 AM EDT Sexual Orientation Choose not to disclose 2021 10:27 AM EDT Plan of Treatment Health Maintenance Due Date Last Done Comments CT Colonography 1965 Colonoscopy 1965 Colorectal Cancer Screening 1965 Depression Screening 1965 FIT DNA/Cologuard 1965 FIT 1965 FOBT 1965 Sigmoidoscopy 1965 Alcohol/Substance Use Screening 1976 Tobacco Screening 1976 DTaP/Tdap/Td Vaccines (1 - Tdap) 01/07/1983 Pap Smear 01/07/1985 Cervical Cancer Screening 01/07/1994 HPV/Cotest 01/07/1994 Mammogram 2004 Pneumococcal Vaccine: 50+ Years (1 of 1 - PCV) 01/07/2014 Zoster Vaccines (1 of 2) 01/07/2014 COVID-19 Vaccine ( - 2023-2 5 season) 2023 Influenza Vaccine (#1) 2023 6, 02/05/2015, 03/29/2014 RSV Patients and Patients Aged 60 years or older (1 - 1-dose 75+ series) 01/07/2039 HIB Vaccines Aged Out No longer eligi ble based on patient's age to complete this topic HPV Vaccines Aged Out No longer eligi ble based on patient's age to complete this topic Hepatitis A Vaccines Aged Out No long er eligible based on patient's age to complete this topic Hepatitis B Vaccines Aged Out No long er eligible based on patient's age to complete this topic IPV Vaccines Aged Out No longer eligi ble based on patient's age to complete this topic Meningococcal Vaccine Aged Out No yosef juanjose eligible based on patient's age to complete this topic Pneumococcal Vaccine: Pediatrics (0 to 5 Years) and At-Risk Patients (6 to 49) Years) Aged Out No longer eligible b ased on patient's age to complete this topic RSV under 20 months Aged Out No longe r eligible based on patient's age to complete this topic Rotavirus Vaccines Aged Out No longer eligible based on patient's age to complete this topic
--- NOTE | 2024-06-06 10:13 | A.OFFPC_ITS ---
Vital Signs 06/06/24 10:14 Height 5 ft 4 in Weight 167 lb BMI 28.7 BP 134/76 Blood Pressure Location Lt brachial Position Sitting Pulse 78 Pulse Source Pulse Oximeter Temp 98.0 F Temp Source Oral Pulse Oximetry (%) 98 Intake Visit Reasons: 6 month f/u Allergies aspirin Adverse Reaction (Mild, Verified 06/06/24 10:14) GI upset, nausea and vomiting Medication List - Last Reconciled 06/06/24 by [facility]- amlodipine 10 mg PO DAILY atorvastatin 40 mg PO BEDTIME 90 days blood sugar diagnostic As directed blood sugar diagnostic (OneTouch Ultra Test strips) tid testing diazepam 5 mg PO .prn PRN empagliflozin (Jardiance) 10 mg PO DAILY fluticasone propionate 50 mcg/actuation (Allergy Relief (fluticasone)) 2 sprays intranasal DAILY FreeStyle Lite Meter (blood-glucose meter) tid testing NS FreeStyle Lite Strips (blood sugar diagnostic) TID testing NS hydrochlorothiazide 12.5 mg PO QAM irbesartan 75 mg PO DAILY 90 days lancets (OneTouch Delica Lancets) test BS TID metformin 1,000 mg PO BID 90 days Tobacco use date assessed: 06/06/24 Dental Screening Dental Screen Date: 06/06/24 Did you have a dental visit in the last 12 months?: Yes Did you have a dental problem in the last 6 months where you did not have access to dental care?: No Was dental information given to patient?: Patient has dentist HPI 6 month f/u HPI Details Chief Complaint The patient presented for a follow-up regarding diabetic management. History of Present Illness The patient is a 59-year-old female presenting with a follow-up appointment concerning Type 2 Diabetes Mellitus. The patient reports non-adherence to the prescribed oral hypoglycemic medication, namely Jardiance 10 mg, as she perceived it to cause adverse effects. The specific nature of these effects was not explicitly recalled by the patient. During this visit, the patient's A1c was measured at 7.2%, indicating continued inadequate glycemic control. There is no incidence of diabetic neuropathy or extremity complications reported. The patient's cardiac history is notable for a systolic heart murmur, which is described as faint. Overall, the patient denies symptoms suggestive of hyperglycemia, including polyuria and polydipsia, and has not experienced any neuropathy, nor does she report any overt cardiac symptoms such as chest pain or dyspnea. Social History Health Maintenance - Glucose control monitored via HbA1c du ring this visit, value noted to be 7.2%. - Neuropathy screening through monofilam ent test showed positive sensation bilaterally. - Physical examination of feet showed in tact skin bilaterally. Review of Systems - Cardiovascular: Denies chest pain, wang rtness of breath. - Endocrine: Denies polyuria, polydipsia . - Neurological: Denies neuropathy. Physical Exam General: Cooperative, healthy appearing, comfortable, no acute distress and well developed Orientation: Patient oriented x3 Limitations: No limitations Head: Normal to inspection Ears: Hearing grossly normal bilaterally Nose: Normal external nose present Face and sinus: Normal facial exam Eyes: Appearance normal, both eyes and all related structures Neck: Normal visual inspection and Yes full ROM Respiratory: Normal respiratory effort and able to speak in complete sentences. Clear to auscultation bilaterally Cardiovascular: Regular rate and rhythm. Normal S1 and S2. Systolic murmur appreciated, faint GI: Normal to inspection. Soft to palpation and nontender Skin: No rashes or lesions noted Neuro: Patient oriented x3 Extremities: Normal to inspection. Feet intact bilaterally, positive sensation with the use of monofilament to feet Results - Labs: HbA1c measured at 7.2%. Plan - Modify Jardiance treatment to start at a reduced dosage of 5 mg to assess tolerance and effectiveness. - Continue monitoring for any cardiovasc ular symptoms due to the presence of a systolic murmur. - Regular monitoring of blood glucose le vels is advised to assess ongoing management efficacy. - Ensure follow-up HbA1c testing within the recommended interval to evaluate diabetic control. Patient was informed and verbally consented to the use of an ambient scribe for clinic note documentation during this visit. Discussion Notes During the consultation, we discussed the importance of glycemic control and its impact on overall health outcomes. I explained the decision to reduce the Jardiance dosage to 5 mg to ameliorate any potential adverse reactions while monitoring efficacy. Emphasized the necessity of consistent medication adherence to improve A1c levels. Follow-up was recommended to reassess glycemic control and ensure that medication adjustments help reduce the potential side effects experienced by the patient. Patient Instructions - Begin taking Jardiance at a reduced do se, 5 mg daily, and monitor for any adverse reactions. - Report any signs of side effects, incl uding gastrointestinal discomfort or new symptoms. - Monitor blood glucose levels routinely as advised. - Schedule follow-up for repeat HbA1c te sting to ensure glycemic control. - Notify the healthcare provider if any new cardiac symptoms such as chest pain or shortness of breath occur. [facility] Medical History HTN (hypertension) Dyslipidemia Type 2 diabetes mellitus History of anemia Personal history of nicotine dependence Tubular adenoma of colon Surgical History History of colonoscopy History of cervical biopsy History of tubal ligation Family History Father Unknown family medical history Mother Diabetes mellitus Sister Brain cancer Sister No problems noted. Son No problems noted. Daughter No problems noted. Daughter No problems noted. Daughter No problems noted. Social History Housing: House Alcohol intake: current Alcohol intake frequency: holidays/special occasions only Patient Tobacco Use Status: Former Tobacco user Tobacco use type: Cigarette Years Smoked: (onset 13yo, 1/2ppd x 43 yeats - 21pyh - quit 2020) e-Cigarette/Vaping Use: Never Used Second Hand Smoke Exposure: No service: No Current occupational status: employed Current occupation: [employer] Current occupational exposures/hazards: Yes Cognitive needs: No Hearing needs: No Vision needs: No Female Reproductive History Menstrual Age of Menarche: 11 Questionnaire PHQ-9 Over the last 2 weeks, how often have you been bothered by any of the following problems? 1. Little interest or pleasure in doing things: not at all 2. Feeling down, depressed, or hopeless: not at all 3. Trouble falling or staying asleep, or sleeping too much: several days 4. Feeling tired or having little energy: not at all 5. Poor appetite or overeating: not at all 6. Feeling bad about yourself - or that you are a failure or have let yourself or your family down: not at all 7. Trouble concentrating on things, such as reading the newspaper or watching television: not at all 8. Moving or speaking so slowly that other people could have noticed. Or the opposite - being so fidgety or restless that you have been moving around a lot more than usual: not at all 9. Thoughts that you would be better off or of hurting yourself in some way: not at all Total score: 1 Depression Screening Interpretation: Negative Depression Screening Done: Yes 35096 - PHQ-9 Billing: Yes Source: Developed by Drs. Prateek Thacker, Luna Reza, Bubba Lowe and colleagues, with an educational vin from [employer]. Thrive Questionnaire Date Thrive assessed: 06/06/24 I am a: Patient What is your living situation today?: I have a steady place to live Within the past 12 months, did the food you bought not last and you didn't have the money to get more?: Never true Within the past 12 months, did you worry whether your food would run out before you got money to buy more?: Never true Do you have trouble paying for medicines?: No Do you have trouble getting transportation to medical appointments?: No Do you have trouble paying your heating and electricity bill?: No Do you have trouble taking care of your child, family member or friend?: No Do you have trouble with day-to-day activities such as bathing, preparing meals, shopping, managing finances, etc.?: No Are you currently unemployed and looking for a job?: No Are you interested in more education?: Yes Please select the resources that you would like help with: None Currently or been in a relationship where the following occur: No concerns reported THRIVE Score: 0 AUDIT C Alcohol Use Questionnaire (AUDIT-C) 1. How often do you have a drink containing alcohol?: Monthly or less 2. How many drinks containing alcohol do you have on a typical day when you are drinking?: 1 or 2 3. How often do you have six or more drinks on one occasion?: Never Total Score: 1 Score Reviewed/Action Taken: Yes HONG-7 AMB Questionnaire HONG-7 Date HONG - 7 assessed: 06/06/24 Feeling nervous, anxious, or on edge: 0 = Not at all Not being able to stop or control worryin = Not at all Worrying too much about different things: 1 = Several days Trouble relaxin = Not at all Being so restless that it is hard to sit still: 0 = Not at all Becoming easily annoyed or irritable: 0 = Not at all Feeling afraid as if something awful might happen: 0 = Not at all Total HONG-7 score (0-4 normal; 5-9 mild; 10-14 moderate; 15-21 severe): 1 Source: Developed by Drs. Prateek Thacker, Luna Reza, Bubba Lowe and colleagues, with an educational vin from [employer]. HONG-7 Assessment Billing HONG-7 Assessment Tool: HONG-7 Assessment 42605 Physical exam (Primary Care) Vital Signs: Last Vital Signs Temp 98.0 F 06/06/24 10:14 Pulse 78 06/06/24 10:14 BP 134/76 06/06/24 10:14 Pulse Ox 98 06/06/24 10:14 BMI result Body Mass Index 28.7 Tobacco/Smoking Status: Tobacco use Status Tobacco use date assessed 06/06/24 06/06/24 10:16 Patient Tobacco Use Status Former Tobacco user 06/06/24 10:16 Tobacco use type Cigarette 06/06/24 10:16 e-Cigarette/Vaping Use Never Used 06/06/24 10:16 PHQ-9: PHQ-9 Score PHQ-9: Total score 1 06/06/24 10:16 Depression Screening Interpretation: Negative Thrive Assessment: Date of Thrive Assessment Date Thrive assessed 06/06/24 06/06/24 10:16 Currently or been in a relationship where the following occur: No concerns reported Results AMB Hemoglobin A1c AMB Hemoglobin A1c 7.2 % Last Edit by Burt Hendricks CMA on 06/06/24 10: 38 Coding Level of Care Code Est Pt Level 3 (15540) Diagnoses Type 2 diabetes mellitus E11.9 Additional Codes HONG-7 Assessment Billing - HONG-7 Assessment Tool: HONG-7 Assessment 97798 ([id number]) PHQ-9 - 48364 - PHQ-9 Billing: Yes ([id number]) Assessment & Plan Assessment & Plan (1) Type 2 diabetes mellitus: Code(s): E11.9 - Type 2 diabetes mellitus without complications Category: Medical Plan . Orders: Orders Complete Blood Count Auto Diff Today E11.9 - Type 2 diabetes mellitus without complications Comprehensive [place]. Panel Fast Today E11.9 - Type 2 diabetes mellitus without complications TSH reflex Free T4 Today E11.9 - Type 2 diabetes mellitus without complications UA CC w/rflx Micro + Cult Today E11.9 - Type 2 diabetes mellitus without complications Lipid Panel Today E11.9 - Type 2 diabetes mellitus without complications Medications: New fluticasone propionate 50 mcg/actuation (Allergy Relief (fluticasone)) administer into each nostril 2 sprays intranasal DAILY 16 grams 1RF Refilled empagliflozin (Jardiance) 10 mg PO DAILY 30 tabs 2RF
[2024-06-06 10:14] VITALS: BP 134/76; PULSE 78; TEMP 36.7; O2SAT 98; BMI 28.7
== END 2024-06-06 10:47 | disposition home or self-care (01) ==
PROVIDERS: Visit Provider Nurse Practitioner Family
DX: Z13.9 Encounter for screening, unspecified (principal); E11.9 Type 2 diabetes mellitus without complications

== ENCOUNTER → 2024-06-06 10:10 | Outpatient (BNVA) | payer OTHER, SELFPAY | PROVIDERS: Visit Provider Nurse Practitioner Family | DX: E11.9 Type 2 diabetes mellitus without complications (principal) | CPT/HCPCS: 83036; 96127; 99212 ==

== ENCOUNTER 2024-09-13 13:58 | Outpatient (REF) | payer OTHER, SELFPAY | END 2024-09-13 13:59 | disposition home or self-care (01) | LOC: HO.LNP 13:58 | PROVIDERS: PCP Nurse Practitioner Family; Visit Provider Nurse Practitioner Family | DX: E11.9 Type 2 diabetes mellitus without complications (principal); N89.8 Other specified noninflammatory disorders of vagina | CPT/HCPCS: 81515; 83036; 99212 ==

== ENCOUNTER 2024-09-13 13:58 | Outpatient (AMB) | payer OTHER, SELFPAY ==
[2024-09-13 14:01] VITALS: BP 136/80; PULSE 76; TEMP 36.6; O2SAT 98; BMI 27.8
--- NOTE | 2024-09-13 14:01 | A.OFFPC_ITS ---
Vital Signs 09/13/24 14:01 Height 5 ft 4 in Weight 162 lb BMI 27.8 BP 136/80 Blood Pressure Location Lt brachial Position Sitting Pulse 76 Pulse Source Pulse Oximeter Temp 97.8 F Temp Source Oral Pulse Oximetry (%) 98 Oxygen Delivery Method Room Air Intake Visit Reasons: 3m follow up Escort Vehicle Driver Required: No Accompanied by: Self / Same As Patient Allergies aspirin Adverse Reaction (Mild, Verified 09/13/24 14:01) GI upset, nausea and vomiting Tobacco use date assessed: 06/06/24 Dental Screening Dental Screen Date: 06/06/24 HPI 3m follow up HPI Details Chief Complaint The patient presents for a follow-up of diabetes management. History of Present Illness The patient is a 59-year-old female presenting with a follow-up for diabetes management. Her Hemoglobin A1c is currently 6.7%, demonstrating adequate control of her blood sugar levels. She mentions experiencing mild vaginal irritation but denies sexual activity, necessitating an evaluation for a UTI, bacterial vaginosis, and a yeast infection. The patient shows no signs of diabetic neuropathy and does not experience symptoms like polyuria or polydipsia. During cardiovascular assessment, a faint systolic murmur is observed, although the patient does not have chest pain or shortness of breath. She is compliant with her diabetes medications and dietary regimen and will ensure to undergo an eye examination and necessary labs soon for ongoing monitoring. Social History - The patient did not discuss any releva nt social history information during this visit. Health Maintenance - Eye examination recommended - Laboratory tests planned for the near future Review of Systems - Genitourinary: Reports slight vaginal irritation; Denies sexual activity - Neurological: Denies neuropathy - Cardiovascular: Denies chest pain; Den ies shortness of breath - Endocrine: Denies polyuria; Denies nkechi ydipsia Physical Exam General: Cooperative, healthy appearing, comfortable, no acute distress and well developed Orientation: Patient oriented x3 Limitations: No limitations Head: Normal to inspection Ears: Hearing grossly normal bilaterally Nose: Normal external nose present Face and sinus: Normal facial exam Eyes: Appearance normal, both eyes and all related structures Neck: Normal visual inspection and Yes full ROM Respiratory: Normal respiratory effort and able to speak in complete sentences. Clear to auscultation bilaterally Cardiovascular: Regular rate and rhythm. Normal S1 and S2, faint systolic murmur GI: Normal to inspection. Soft to palpation and nontender Skin: No rashes or lesions noted Neuro: Patient oriented x3 Extremities: Normal to inspection, feet intact bilaterally, no neuropathy reported Results - Labs: Hemoglobin A1c: 6.7% Plan For diabetes management, I will maintain her current medication and dietary regimen, ensuring glucose remains controlled. I will test for UTI, BV, and yeast infection related to her vaginal irritation. A faint systolic murmur was noted, but no cardiac symptoms were reported; thus, routine cardiac assessment will continue unless further symptoms develop. She will undergo her eye examination and lab tests soon to monitor for potential diabetes complications. Discussion Notes I discussed with the patient the importance of ongoing monitoring of her blood glucose levels, as evidenced by her Hemoglobin A1c, and adherence to her current diabetes management plan. I informed her about investigating the cause of her vaginal irritation through tests for UTI, bacterial vaginosis, and yeast infection. We reviewed the faint systolic murmur detected; however, since she has no related symptoms like chest pain or shortness of breath, regular cardiac assessments will continue unless symptoms arise. I emphasized the necessity of following through with her eye examination and lab work as part of her comprehensive care plan. Patient Instructions - Continue to take your diabetes medicat ions as prescribed. - Maintain your current diet to help man age blood sugar levels. - Look out for and report any new sympto ms such as changes in urination, chest pain, or shortness of breath. - Undergo recommended eye examination an d lab tests soon. - Inform me if vaginal irritation persis ts or worsens. [facility] Medical History HTN (hypertension) Dyslipidemia Type 2 diabetes mellitus History of anemia Personal history of nicotine dependence Tubular adenoma of colon Surgical History History of colonoscopy History of cervical biopsy History of tubal ligation Family History Father Unknown family medical history Mother Diabetes mellitus Sister Brain cancer Sister No problems noted. Son No problems noted. Daughter No problems noted. Daughter No problems noted. Daughter No problems noted. Social History Housing: House Alcohol intake: current Alcohol intake frequency: holidays/special occasions only Patient Tobacco Use Status: Former Tobacco user Tobacco use type: Cigarette Years Smoked: (onset 13yo, 1/2ppd x 43 yeats - 21pyh - quit 2020) e-Cigarette/Vaping Use: Never Used Second Hand Smoke Exposure: No service: No Current occupational status: employed Current occupation: [employer] Current occupational exposures/hazards: Yes Cognitive needs: No Hearing needs: No Vision needs: No Female Reproductive History Menstrual Age of Menarche: 11 Questionnaire Thrive Questionnaire Date Thrive assessed: 09/13/24 I am a: Patient What is your living situation today?: I have a steady place to live Within the past 12 months, did the food you bought not last and you didn't have the money to get more?: Never true Within the past 12 months, did you worry whether your food would run out before you got money to buy more?: Never true Do you have trouble paying for medicines?: No Do you have trouble getting transportation to medical appointments?: No Do you have trouble paying your heating and electricity bill?: No Do you have trouble taking care of your child, family member or friend?: No Do you have trouble with day-to-day activities such as bathing, preparing meals, shopping, managing finances, etc.?: No Are you currently unemployed and looking for a job?: No Are you interested in more education?: Yes Please select the resources that you would like help with: None Currently or been in a relationship where the following occur: No concerns reported THRIVE Score: 0 OHNG-7 AMB Questionnaire HONG-7 Date HONG - 7 assessed: 06/06/24 Source: Developed by Drs. Prateek Thacker, Luna Reza, Bubba Lowe and colleagues, with an educational vin from [employer]. Physical exam (Primary Care) Vital Signs: Last Vital Signs Temp 97.8 F 09/13/24 14:01 Pulse 76 09/13/24 14:01 BP 136/80 09/13/24 14:01 Pulse Ox 98 09/13/24 14:01 Oxygen Delivery Method Room Air 09/13/24 14:01 BMI result Body Mass Index 27.8 Tobacco/Smoking Status: Tobacco use Status Tobacco use date assessed 06/06/24 09/13/24 14:04 Patient Tobacco Use Status Former Tobacco user 09/13/24 14:04 Tobacco use type Cigarette 09/13/24 14:04 e-Cigarette/Vaping Use Never Used 09/13/24 14:04 Thrive Assessment: Date of Thrive Assessment Date Thrive assessed 09/13/24 09/13/24 14:04 Currently or been in a relationship where the following occur: No concerns reported Results AMB Hemoglobin A1c AMB Hemoglobin A1c 6.7 % Last Edit by Burt Hendricks CMA on 09/13/24 14: 29 Results Reviewed Results Reviewed: Laboratory Last Values Hgb A1c (Clinic) 6.7 % (4.0-6.0) H 09/13/24 14:28 Coding Level of Care Code Est Pt Level 3 (92560) Diagnoses Vaginal irritation N89.8 Type 2 diabetes mellitus E11.9 Assessment & Plan Assessment & Plan (1) Vaginal irritation: Code(s): N89.8 - Other specified noninflammatory disorders of vagina Category: Medical (2) Type 2 diabetes mellitus: Code(s): E11.9 - Type 2 diabetes mellitus without complications Category: Medical Plan . Orders: Orders AMB Hemoglobin A1c Today Z13.9 - Encounter for screening, unspecified Bacterial Vaginosis Panel Today N89.8 - Other specified noninflammatory disorders of vagina UA CC w/rflx Micro + Cult Today E11.9 - Type 2 diabetes mellitus without complications Comprehensive [place]. Panel Fast Today E11.9 - Type 2 diabetes mellitus without complications Complete Blood Count Auto Diff Today E11.9 - Type 2 diabetes mellitus without complications TSH reflex Free T4 Today E11.9 - Type 2 diabetes mellitus without complications Lipid Panel Today E11.9 - Type 2 diabetes mellitus without complications
--- OUTSIDE RECORDS SUMMARY | 2024-09-13 14:15 | XMS_ITS | Clinical Summary ---
Author Organization [employer] Address [address] [place] [address] Care Team Providers Care Turning Sander Tender Name Role Phone Unavailable Primary Care Provider [...] 1964 FIT 1964 FOBT 1964 Sigmoidoscopy 1964 Disability Screening 1964 Alcohol/Substance Use Screening 1976 Tobacco Screening [...] patient's age to complete this topic Meningococcal B Vaccine Aged Out No l onger eligible based on patient's age to complete [...]
== END 2024-09-13 14:51 | disposition home or self-care (01) ==
LOC: HO.HMCC 13:59
PROVIDERS: PCP Nurse Practitioner Family; Visit Provider Nurse Practitioner Family
DX: N89.8 Other specified noninflammatory disorders of vagina (principal); E11.9 Type 2 diabetes mellitus without complications; Z13.9 Encounter for screening, unspecified

== ENCOUNTER 2024-09-13 16:33 | Outpatient (REF) | payer OTHER, SELFPAY ==
[2024-09-13 17:49] LABS: Bacterial Vaginosis PCR NEGATIVE (Negative); Candida Group PCR NOT DETECTED (Not Detect); Candida glab krusei PCR NOT DETECTED (Not Detect); Trichomonas vaginalis PCR NOT DETECTED (Not Detect)
== END 2024-09-13 16:34 | disposition home or self-care (01) ==
LOC: HO.LAB 16:33
PROVIDERS: Visit Provider Nurse Practitioner Family
DX: Z13.89 Encounter for screening for other disorder (principal)
CPT/HCPCS: 81515

== ENCOUNTER 2024-11-15 13:13 | Outpatient (REF) | payer OTHER, SELFPAY ==
--- OUTSIDE RECORDS SUMMARY | 2024-11-15 14:00 | XMS_ITS | Clinical Summary ---
Author Organization [employer] Address [address] [facility] [address] [place] [address] Care Team Providers Care Weigher Bulker Name Role Phone Unavailable Primary Care Provider [...] Vaccines (1 of 2) 01/07/2014 COVID-19 Vaccine (1 - 2023-2 5 season) 2023 Influenza Vaccine (#1) 2024 6, 02/05/2015, 03/29/2014 RSV Patients and Patients [...]
[2024-11-15 16:17] LABS: MANUAL DIFF FLAG NO
[2024-11-15 16:24] LABS: Hematocrit 47.8 % (37.0-47.0); Hemoglobin 15.5 g/dl (12.0-16.0); Imm Gran Abs Auto 0.03 X10*3/uL (0.00-0.03); Imm Gran Pct Auto 0.3 % (0.0-0.4); Lymphocytes Absolute Auto 1.8 X10*3/uL (1.2-4.9); Mean Corpuscular HGB Conc 32.4 g/dl (31.0-35.0); Mean Corpuscular Hemoglobin 27.1 pg (27.0-33.0); Mean Corpuscular Volume 83.7 fL (80.0-98.0); NRBC Pct Auto 0.0 /100WBC (0.0-0.2); Platelet Count 279 X10*3/uL (160-400); Red Blood Count 5.71 X10*6/uL (4.20-5.50); White Blood Count 9.4 X10*3/uL (4.8-10.8)
[2024-11-15 16:25] LABS: NRBC Abs Auto 0.000 X10*3/uL (0.0-0.012)
[2024-11-15 16:26] LABS: Appearance Urine Clear; Glucose Urine UA >=1000 mg/dL (Negative); PH 5.5 (5.0-9.0); Specific Gravity - Urine >= 1.030 (1.005-1.025); UMIC TRIGGER UACC YES
[2024-11-15 16:59] LABS: Alanine Aminotransferase 22 U/L (0-31); Albumin Level 4.7 g/dL (3.5-5.0); Alkaline Phosphatase 70 U/L (39-117); Anion Gap 14 (12-20); Aspartate Amino Transferase 26 U/L (5-31); Blood Urea Nitrogen 14 mg/dL (9-16); Calcium 9.5 mg/dL (8.4-10.2); Carbon Dioxide 26 mmol/L (22-29); Chloride 102 mmol/L (96-108); Cholesterol 143 mg/dL (<200); Estimated Glomerular Filt Rate > 60; HDL Cholesterol 45 mg/dL (>40); Potassium 4.4 mmol/L (3.3-5.1); Sodium 138 mmol/L (135-145); Total Protein 7.6 g/dL (6.5-8.0); Triglycerides 171 mg/dL (<150)
== END 2024-11-15 13:14 | disposition home or self-care (01) ==
LOC: HO.HMGCLDS 13:13
PROVIDERS: PCP Nurse Practitioner Family; Visit Provider Nurse Practitioner Family
DX: E11.9 Type 2 diabetes mellitus without complications (principal)
CPT/HCPCS: 36415; 80053; 80061; 81001; 84443; 85025

== ENCOUNTER 2024-11-21 11:46 | Outpatient (REF) | payer OTHER, SELFPAY ==
--- OUTSIDE RECORDS SUMMARY | 2024-11-21 12:35 | XMS_ITS | Clinical Summary ---
Author Organization [employer] Address [address] [facility] [address] [place] [address] Care Team Providers Care Non Acoustic Operator Name Role Phone Unavailable Primary Care Provider [...]
[2024-11-21 13:03] LABS: Appearance Urine Clear; Glucose Urine UA >=1000 mg/dL (Negative); PH 6.0 (5.0-9.0); Specific Gravity - Urine 1.015 (1.005-1.025); UMIC TRIGGER UACC YES
[2024-11-22 22:07] LABS: Rubeola IgG (Measles) >300.00 AU/mL
[2024-11-24 00:34] LABS: TS Negative Control Passed; TS Panel A 0; TS Panel B 0; TS Positive Control Passed; TSpotTB Negative (Negative)
== END 2024-11-21 11:47 | disposition home or self-care (01) ==
LOC: HO.HMGCLDS 11:46
PROVIDERS: PCP Nurse Practitioner Family; Visit Provider Nurse Practitioner Family
DX: Z11.1 Encounter for screening for respiratory tuberculosis (principal); Z11.59 Encounter for screening for other viral diseases; Z01.84 Encounter for antibody response examination; R80.9 Proteinuria, unspecified; Z28.39 Other underimmunization status
CPT/HCPCS: 36415; 81001; 81003; 86481; 86735; 86762; 86765; 86787

== ENCOUNTER 2025-02-18 10:32 | Outpatient (REF) | payer OTHER, SELFPAY ==
--- NOTE | ~2025-02-18 | CT_ITS ---
CLINICAL HISTORY: Z87.891 - Personal history of nicotine dependence CT lung cancer screening (LDCT) Comparison: None provided Technique: Axial CT images of the chest using low-dose technique. Referring provider counseled the patient on shared decision-making for LDCT screening. Additional counseling was provided on smoking cessation. Effective radiation dose total: DLP 44.8 mGycm, CTDIvol 1.3 mGy. Findings: Lung: Minimal centrilobular emphysema. No acute infiltrates. Stable subpleural fibrosis/scar medial right lower lobe. No significant pulmonary nodule or mass. Coronary artery calcifications: Stable mild Limited upper abdomen: Unremarkable Other: Thoracic spine degenerative spondylosis. IMPRESSION: LungRADS 1: Negative exam. Continue annual screening with low dose Chest CT in 12 months. ##L1## This document has been electronically signed by: Kandy Estevez MD on 02/20/2025 14:03:14
--- OUTSIDE RECORDS SUMMARY | 2025-02-18 10:35 | XMS_ITS | Encounter Summary ---
Author Organization [employer] Address [address] [facility] [address] [place] [address] Care Team Providers Care Furnace Erector Name Role Phone Unavailable Primary Care Provider Unavailabl e Encounter Details Date Type Department Care Team (Latest Contact Info) Description 08/17/2020 Abstract C CONVERSIONS Dental, Provider, DDS Social History Tobacco [...]
--- OUTSIDE RECORDS SUMMARY | 2025-02-18 10:35 | XMS_ITS | Clinical Summary ---
Author Organization [employer] Address [address] [facility] [address] [place] [address] Care Team Providers Care Field Account Director Name Role Phone Unavailable Primary Care Provider [...] COVID-19 Vaccine (1 - 2023-2 5 season) 2024 Influenza Vaccine (#1) 2024 6, 02/05/2015, 03/29/2014 [...]
== END 2025-02-18 10:33 | disposition home or self-care (01) ==
LOC: HO.CT 10:32
PROVIDERS: PCP Nurse Practitioner Family; Visit Provider Physician Assistant Medical
DX: Z12.2 Encounter for screening for malignant neoplasm of respiratory organs (principal); Z87.891 Personal history of nicotine dependence
CPT/HCPCS: 71271

== ENCOUNTER → 2025-02-18 10:34 | Outpatient (BNV) | payer OTHER, SELFPAY | PROVIDERS: PCP Nurse Practitioner Family; Visit Provider Radiology Diagnostic Radiology | DX: Z12.2 Encounter for screening for malignant neoplasm of respiratory organs (principal); Z87.891 Personal history of nicotine dependence | CPT/HCPCS: 71271 ==

== ENCOUNTER → 2025-03-04 10:30 | Outpatient (BNV) | payer OTHER, SELFPAY | PROVIDERS: PCP Nurse Practitioner Family; Visit Provider Radiology Body Imaging | DX: Z12.31 Encounter for screening mammogram for malignant neoplasm of breast (principal) | CPT/HCPCS: 77063; 77067 ==

== ENCOUNTER 2025-03-04 10:35 | Outpatient (REF) | payer OTHER, SELFPAY ==
--- NOTE | ~2025-03-04 | MM_ITS ---
EXAMINATION: MM SCREENING DIGITAL BREAST TOMOSYNTHESIS, BILATERAL CLINICAL INFORMATION: Screening. Asymptomatic. COMPARISON: Comparison made to multiple prior, most recent February 27, 2024, and most remote November 13, 2015. Right breast ultrasound on November 13, 2015. TECHNIQUE: Digital breast tomosynthesis is performed in mediolateral oblique and craniocaudal views along with computer-aided detection (CAD). Synthesized 2D images are generated from the tomosynthesis. FINDINGS: BREAST COMPOSITION: There are scattered areas of fibroglandular density. RIGHT BREAST: About 1.1 cm focal asymmetry in the lateral breast at approximately 9 o'clock position at about 8 cm from the nipple, at similar location of the remote sonographically proven clustered cysts at 8 o'clock position 5 cm the nipple. No suspicious calcifications or other abnormalities are seen. LEFT BREAST: No significant masses, suspicious calcifications or other abnormalities are seen. MM/MM tomosynthesis screening BI IMPRESSION: RIGHT BREAST: Focal asymmetry in the lateral breast at approximately 9 o'clock position at middle depth. LEFT BREAST: Negative, no mammographic evidence of malignancy. Normal interval follow-up is recommended in 12 months. ASSESSMENT: BI-RADS: Category 0: Incomplete - Need additional Imaging Evaluation RECOMMENDATION: 1. Additional views of the right breast. 2. Targeted ultrasound if warranted after review of the additional views. 3. Radiology department staff will contact the patient for additional imaging. FOLLOW-UP: Additional Imaging required This examination should not preclude the clinical evaluation of a suspicious palpable abnormality. This patient's information was entered into a reminder system with a target due date for their next mammogram. Electronically signed by: Nasir Vasquez MD 03/06/2025 07:25 PM [facility]
== END 2025-03-04 10:36 | disposition home or self-care (01) ==
LOC: HO.MAMMO 10:35
PROVIDERS: PCP Nurse Practitioner Family; Visit Provider Nurse Practitioner Family
DX: Z12.31 Encounter for screening mammogram for malignant neoplasm of breast (principal)
CPT/HCPCS: 77063; 77067

== ENCOUNTER 2025-03-28 06:48 | Outpatient (REF) | payer OTHER, SELFPAY ==
--- OUTSIDE RECORDS SUMMARY | 2025-03-28 06:51 | XMS_ITS | Encounter Summary ---
Author Organization [employer] Address [address] [place] [address] Care Team Providers Care Roller Mechanic Name Role Phone Unavailable Primary Care Provider [...]
--- OUTSIDE RECORDS SUMMARY | 2025-03-28 06:51 | XMS_ITS | Clinical Summary ---
Author Organization [employer] Address [address] [place] [address] Care Team Providers Care Pot Operator Name Role Phone Unavailable Primary Care [...] of 2) 01/07/2014 COVID-19 Vaccine (1 - 2024-2 6 season) 2024 Influenza Vaccine (#1) 2024 6, [...]
[2025-03-28 10:23] LABS: Appearance Urine Clear; Glucose Urine UA >=1000 mg/dL (Negative); PH 6.0 (5.0-9.0); Specific Gravity - Urine 1.015 (1.005-1.025); UMIC TRIGGER UACC YES
[2025-03-28 10:46] LABS: MANUAL DIFF FLAG NO
[2025-03-28 10:55] LABS: Hematocrit 50.7 % (37.0-47.0); Hemoglobin 16.4 g/dl (12.0-16.0); Imm Gran Abs Auto 0.02 X10*3/uL (0.00-0.03); Imm Gran Pct Auto 0.2 % (0.0-0.4); Lymphocytes Absolute Auto 2.7 X10*3/uL (1.2-4.9); Mean Corpuscular HGB Conc 32.3 g/dl (31.0-35.0); Mean Corpuscular Hemoglobin 26.9 pg (27.0-33.0); Mean Corpuscular Volume 83.3 fL (80.0-98.0); NRBC Abs Auto 0.000 X10*3/uL (0.0-0.012); NRBC Pct Auto 0.0 /100WBC (0.0-0.2); Platelet Count 315 X10*3/uL (160-400); Red Blood Count 6.09 X10*6/uL (4.20-5.50); White Blood Count 8.1 X10*3/uL (4.8-10.8)
[2025-03-28 11:29] LABS: Alanine Aminotransferase 37 U/L (0-31); Albumin Level 4.8 g/dL (3.5-5.0); Alkaline Phosphatase 65 U/L (39-117); Anion Gap 12 (12-20); Aspartate Amino Transferase 35 U/L (5-31); Blood Urea Nitrogen 14 mg/dL (9-16); Calcium 9.8 mg/dL (8.4-10.2); Carbon Dioxide 26 mmol/L (22-29); Chloride 104 mmol/L (96-108); Estimated Glomerular Filt Rate > 60; Potassium 4.1 mmol/L (3.3-5.1); Sodium 138 mmol/L (135-145); Total Protein 7.4 g/dL (6.5-8.0)
[2025-03-28 13:25] LABS: Free T4 (Free Thyroxine) 0.97 ng/dL (0.71-1.85)
== END 2025-03-28 06:49 | disposition home or self-care (01) ==
LOC: HO.HMGCLDS 06:48
PROVIDERS: PCP Nurse Practitioner Family; Visit Provider Nurse Practitioner Family
DX: E11.9 Type 2 diabetes mellitus without complications (principal); R80.9 Proteinuria, unspecified
CPT/HCPCS: 36415; 80053; 81001; 81003; 84439; 84443; 85025

== ENCOUNTER 2025-03-30 15:30 | Outpatient (AMB) | payer OTHER, SELFPAY ==
--- NOTE | 2025-03-30 15:36 | MHC.PC.OV ---
Vital Signs 03/30/25 15:37 Height 5 ft 4 in Weight 167 lb BMI 28.7 BP 120/60 Blood Pressure Location Lt brachial Position Sitting Respiration 16 Pulse 68 Pulse Source Pulse Oximeter Pulse Oximetry (%) 96 Oxygen Delivery Method Room Air Intake Visit Reasons: PE Community Health Nurse Supervisor Required: No Accompanied by: Self / Same As Patient Allergies aspirin Adverse Reaction (Mild, Verified 03/30/25 16:18) GI upset, nausea and vomiting Medication List - Last Reconciled 03/30/25 by NAGI Martini- amlodipine 10 mg PO DAILY atorvastatin 40 mg PO BEDTIME 90 days blood sugar diagnostic As directed blood sugar diagnostic (OneTouch Ultra Test strips) tid testing diazepam 5 mg PO .prn PRN empagliflozin (Jardiance) 10 mg PO DAILY fluticasone propionate 50 mcg/actuation (Allergy Relief (fluticasone)) 2 sprays intranasal DAILY FreeStyle Lite Meter (blood-glucose meter) tid testing NS FreeStyle Lite Strips (blood sugar diagnostic) TID testing NS hydrochlorothiazide 12.5 mg PO QAM irbesartan 75 mg PO DAILY 90 days lancets (OneTouch Delica Lancets) test BS TID metformin 1,000 mg PO BID 90 days tirzepatide (Mounjaro) 2.5 mg (0.5 mL) subcut QWEEK 30 days Tobacco use date assessed: 03/30/25 Dental Screening Dental Screen Date: 03/30/25 Did you have a dental visit in the last 12 months?: Yes Was dental information given to patient?: Patient has dentist HPI PE HPI Details History of Present Illness The patient is a 60-year-old female presenting for a physical exam and management of diabetes. Her A1c is currently 7.6%. She is currently taking a statin and an ARB. Past medical history includes erythrocytosis, for which she has previously seen a instructional interventionist. She has no history of thyroid carcinoma or pancreatitis. She is a former smoker, having quit in 2020, and is enrolled in a low-dose CT scan program for lung cancer screening. Recent labs revealed a low TSH and elevated liver enzymes. Her colonoscopy and mammogram screenings are up to date, although she needs to return for a repeat mammogram. The patient does not currently have a preanalytics team lead. Health Maintenance The patient's colonoscopy screening is up to date, and a referral will be placed as she is due in a few months. She was encouraged to have yearly eye exams. A referral will be placed for a preanalytics team lead, as she does not currently have one. Social History - Tobacco Use: The patient is a former smoker, having quit in 2020. Review of Systems - All other systems were reviewed and are negative. Physical Exam General: Cooperative, healthy appearing, comfortable, no acute distress and well developed Orientation: Patient oriented x3 Limitations: No limitations Head: Normal to inspection Ears: Hearing grossly normal bilaterally Nose: Normal external nose present Face and sinus: Normal facial exam Eyes: Appearance normal, both eyes and all related structures Neck: Normal visual inspection and Yes full ROM Respiratory: Normal respiratory effort and able to speak in complete sentences. Clear to auscultation bilaterally Cardiovascular: Regular rate and rhythm. Normal S1 and S2 GI: Normal to inspection. Soft to palpation and nontender Skin: No rashes or lesions noted Neuro: Patient oriented x3 Extremities: Normal to inspection Results - Hemoglobin A1c: 7.6%. - TSH: low. - Liver Enzymes: elevated. Plan 1. Diabetes Mellitus The patient's hemoglobin A1c is 7.6%. Mounjaro will be initiated at a low dose. microalbumin added 2. Abnormal Thyroid Function Recent labs showed a low TSH. The TSH will be repeated along with other labs, and a thyroid ultrasound will be ordered. 3. Elevated Liver Enzymes The patient has elevated liver enzymes noted on recent labs, which is most likely non-alcoholic fatty liver disease related to diet. An abdominal ultrasound and a hepatitis panel will be ordered. 4. Erythrocytosis The patient has a history of erythrocytosis and has seen a instructional interventionist in the past. Will consult with hematology to determine the levels at which phlebotomy is initiated. Discussion Notes I discussed the patient's lab results, which show an A1c of 7.6%, a low TSH, and elevated liver enzymes. I explained that we would start Mounjaro for her diabetes, noting she has no contraindications such as a history of thyroid carcinoma or pancreatitis. I informed her that we would repeat the TSH and order a thyroid ultrasound to evaluate the low TSH. For the elevated liver enzymes, I mentioned the likely cause is fatty liver disease related to diet and that we will order an abdominal ultrasound and hepatitis screening. We reviewed her health maintenance needs, including an upcoming colonoscopy, a referral to DOG FOOD SHREDDER OPERATOR, and the importance of annual eye exams. I also addressed her history of erythrocytosis and my plan to check with her instructional interventionist about the threshold for phlebotomy. Patient Instructions - You will be starting a new medication called Mounjaro for your diabetes. - You will need to get repeat blood work to check your thyroid levels again. - An ultrasound of your thyroid and your abdomen will be scheduled. - We will also order a blood test to check for hepatitis. - Please make sure to get your eyes checked every year. - A referral will be sent for you to see a preanalytics team lead. - A referral will be placed for your next colonoscopy, as it will be due in a few months. - Make sure to go back for your follow-up mammogram appointment. [facility] Medical History Hx of polycythemia vera HTN (hypertension) Dyslipidemia Type 2 diabetes mellitus History of anemia Personal history of nicotine dependence Tubular adenoma of colon Surgical History History of colonoscopy History of cervical biopsy History of tubal ligation Family History Father Unknown family medical history Mother Diabetes mellitus Sister Brain cancer Sister No problems noted. Son No problems noted. Daughter No problems noted. Daughter No problems noted. Daughter No problems noted. Social History Housing: House Alcohol intake: current Alcohol intake frequency: holidays/special occasions only Patient Tobacco Use Status: Former Tobacco user Tobacco use type: Cigarette Years Smoked: (onset 13yo, 1/2ppd x 43 yeats - 21pyh - quit 2020) e-Cigarette/Vaping Use: Never Used Second Hand Smoke Exposure: No service: No Current occupational status: employed Current occupation: [employer] Current occupational exposures/hazards: Yes Cognitive needs: No Hearing needs: No Vision needs: No Female Reproductive History Menstrual Age of Menarche: 11 Questionnaire PHQ-9 Over the last 2 weeks, how often have you been bothered by any of the following problems? 1. Little interest or pleasure in doing things: not at all 2. Feeling down, depressed, or hopeless: not at all 3. Trouble falling or staying asleep, or sleeping too much: several days 4. Feeling tired or having little energy: not at all 5. Poor appetite or overeating: not at all 6. Feeling bad about yourself - or that you are a failure or have let yourself or your family down: not at all 7. Trouble concentrating on things, such as reading the newspaper or watching television: several days 8. Moving or speaking so slowly that other people could have noticed. Or the opposite - being so fidgety or restless that you have been moving around a lot more than usual: not at all 9. Thoughts that you would be better off or of hurting yourself in some way: not at all Total score: 2 Depression Screening Interpretation: Negative Depression Screening Done: Yes 96173 - PHQ-9 Billing: Yes Source: Developed by Drs. Prateek Thacker, Luna Reza, Bubba Lowe and colleagues, with an educational vin from [employer]. Thrive Questionnaire Date Thrive assessed: 05/30/24 I am a: Patient What is your living situation today?: I have a steady place to live Within the past 12 months, did the food you bought not last and you didn't have the money to get more?: Never true Within the past 12 months, did you worry whether your food would run out before you got money to buy more?: Never true Do you have trouble paying for medicines?: No Do you have trouble getting transportation to medical appointments?: No Do you have trouble paying your heating and electricity bill?: No Do you have trouble taking care of your child, family member or friend?: No Do you have trouble with day-to-day activities such as bathing, preparing meals, shopping, managing finances, etc.?: No Are you currently unemployed and looking for a job?: No Are you interested in more education?: Yes Please select the resources that you would like help with: None Currently or been in a relationship where the following occur: No concerns reported THRIVE Score: 0 HONG-7 AMB Questionnaire HONG-7 Date HONG - 7 assessed: 03/30/25 Feeling nervous, anxious, or on edge: 0 = Not at all Not being able to stop or control worryin = Not at all Worrying too much about different things: 0 = Not at all Trouble relaxin = Not at all Being so restless that it is hard to sit still: 0 = Not at all Becoming easily annoyed or irritable: 0 = Not at all Feeling afraid as if something awful might happen: 0 = Not at all Total HONG-7 score (0-4 normal; 5-9 mild; 10-14 moderate; 15-21 severe): 0 Source: Developed by Drs. Prateek Thacker, Luna Reza, Bubba Lowe and colleagues, with an educational vin from [employer]. HONG-7 Assessment Billing HONG-7 Assessment Tool: HONG-7 Assessment 26165 Physical exam (Primary Care) Vital Signs: Last Vital Signs Pulse 68 03/30/25 15:37 Resp 16 03/30/25 15:37 BP 120/60 03/30/25 15:37 Pulse Ox 96 03/30/25 15:37 Oxygen Delivery Method Room Air 03/30/25 15:37 BMI result Body Mass Index 28.7 Tobacco/Smoking Status: Tobacco use Status Tobacco use date assessed 03/30/25 03/30/25 15:50 Patient Tobacco Use Status Former Tobacco user 03/30/25 15:38 Tobacco use type Cigarette 03/30/25 15:38 e-Cigarette/Vaping Use Never Used 03/30/25 15:38 PHQ-9: PHQ-9 Score PHQ-9: Total score 2 03/30/25 15:50 Depression Screening Interpretation: Negative Thrive Assessment: Date of Thrive Assessment Date Thrive assessed 05/30/24 03/30/25 15:38 Currently or been in a relationship where the following occur: No concerns reported Coding Level of Care Code Est Pt Level 3 (98992) Est Pt Prev Care 40-64y(63638) Diagnoses Elevated liver enzymes R74.8 Low TSH level R79.89 Type 2 diabetes mellitus E11.9 Erythrocytosis D75.1 Screening for cervical cancer Z12.4 Vitamin D deficiency E55.9 Screening for colon cancer Z12.11 Additional Codes HONG-7 Assessment Billing - HONG-7 Assessment Tool: HONG-7 Assessment 06009 ([id number]) PHQ-9 - 25877 - PHQ-9 Billing: Yes ([id number]) Assessment & Plan Assessment & Plan (1) Elevated liver enzymes: Code(s): R74.8 - Abnormal levels of other serum enzymes Category: Medical (2) Low TSH level: Code(s): R79.89 - Other specified abnormal findings of blood chemistry Category: Medical (3) Type 2 diabetes mellitus: Code(s): E11.9 - Type 2 diabetes mellitus without complications Category: Medical (4) Erythrocytosis: Code(s): D75.1 - Secondary polycythemia Category: Medical (5) Screening for cervical cancer: Code(s): Z12.4 - Encounter for screening for malignant neoplasm of cervix Category: Medical (6) Vitamin D deficiency: Code(s): E55.9 - Vitamin D deficiency, unspecified Category: Medical (7) Screening for colon cancer: Code(s): Z12.11 - Encounter for screening for malignant neoplasm of colon Category: Medical Plan . Orders: Orders Hepatitis A,B,C Profile Today R74.8 - Abnormal levels of other serum enzymes TSH reflex Free T4 Today R79.89 - Other specified abnormal findings of blood chemistry Thyroid Peroxidase Antibodies Today R79.89 - Other specified abnormal findings of blood chemistry Triiodothyronine T3 Free Today R79.89 - Other specified abnormal findings of blood chemistry US abdomen complete Today R74.8 - Abnormal levels of other serum enzymes Thyrotropin Receptor Antibody Today R79.89 - Other specified abnormal findings of blood chemistry US thyroid Today R79.89 - Other specified abnormal findings of blood chemistry Microalbumin, Random (w Creat) Today E11.9 - Type 2 diabetes mellitus without complications Free T4 (Free Thyroxine) Today R79.89 - Other specified abnormal findings of blood chemistry Vitamin D 25-OH Total Today E55.9 - Vitamin D deficiency, unspecified Referrals CONSTRUCTION PROJECT ENGINEER Referral Z12.4 - Encounter for screening for malignant neoplasm of cervix Gastroenterology Referral Z12.11 - Encounter for screening for malignant neoplasm of colon Medications: New tirzepatide (Mounjaro) for 4 weeks 2.5 mg (0.5 mL) subcut QWEEK 2.5 mL 0RF 30 days
[2025-03-30 15:37] VITALS: BP 120/60; PULSE 68; RESP 16; O2SAT 96; BMI 28.7
--- OUTSIDE RECORDS SUMMARY | 2025-03-30 23:02 | XMS_ITS | Clinical Summary ---
Author Organization [employer] Address [address] [facility] [address] [place] [address] Care Team Providers Care Junior Qa Analyst Name Role Phone Unavailable Primary Care Provider [...]
--- OUTSIDE RECORDS SUMMARY | 2025-03-30 23:02 | XMS_ITS | Encounter Summary ---
Author Organization [employer] Address [address] [place] [address] Care Team Providers Care Wood Machinist Apprentice Name Role Phone Unavailable Primary Care Provider [...]
== END 2025-03-30 16:28 | disposition home or self-care (01) ==
LOC: HO.HMCC 15:31
PROVIDERS: PCP Nurse Practitioner Family; Visit Provider Nurse Practitioner Family
DX: R74.8 Abnormal levels of other serum enzymes (principal); R79.89 Other specified abnormal findings of blood chemistry; E11.9 Type 2 diabetes mellitus without complications; D75.1 Secondary polycythemia; Z12.4 Encounter for screening for malignant neoplasm of cervix; E55.9 Vitamin D deficiency, unspecified; Z12.11 Encounter for screening for malignant neoplasm of colon; Z00.00 Encounter for general adult medical examination without abnormal findings

== ENCOUNTER → 2025-03-30 15:30 | Outpatient (BNVA) | payer OTHER, SELFPAY | PROVIDERS: PCP Nurse Practitioner Family; Visit Provider Nurse Practitioner Family | DX: E11.9 Type 2 diabetes mellitus without complications (principal); R74.8 Abnormal levels of other serum enzymes; R79.89 Other specified abnormal findings of blood chemistry; D75.1 Secondary polycythemia; E55.9 Vitamin D deficiency, unspecified; Z13.31 Encounter for screening for depression; Z13.39 Encounter for screening examination for other mental health and behavioral disorders | CPT/HCPCS: 83036; 96127; 99212; 99396 ==

== ENCOUNTER → 2025-04-04 15:00 | Outpatient (BNV) | payer OTHER, SELFPAY | PROVIDERS: PCP Nurse Practitioner Family; Visit Provider Radiology Body Imaging | DX: N63.15 Unspecified lump in the right breast, overlapping quadrants (principal) | CPT/HCPCS: 76642; 77061; 77065 ==

== ENCOUNTER 2025-04-04 15:04 | Outpatient (REF) | payer OTHER, SELFPAY ==
--- NOTE | ~2025-04-04 | US_ITS ---
EXAMINATION(S): 1. MM DIAGNOSTIC DIGITAL BREAST TOMOSYNTHESIS, RIGHT 2. TARGETED ULTRASOUND OF THE RIGHT BREAST CLINICAL INFORMATION: Callback from screening for focal asymmetry in the lateral breast at approximately 9 o'clock position at 8 cm from the nipple. This is at similar location of previously seen cluster of cysts at 8 o'clock position 6 cm from the nipple on the ultrasound study from November 13, 2015. COMPARISON: March 04, 2025 TECHNIQUE: Digital breast tomosynthesis is performed in full field ML 90 degrees along with computer-aided detection (CAD). Synthesized 2D images are generated from the tomosynthesis. Spot compression tomosynthesis were obtained. FINDINGS: BREAST COMPOSITION: There are scattered areas of fibroglandular density. RIGHT BREAST: Focal asymmetry in the lateral breast at approximately 9 o'clock position persists on today's images at about 8 cm from the nipple. Targeted ultrasound of the right breast was performed at the location of the mammographic finding. The survey shows a 0.6 x 0.4 x 0.3 cm hypoechoic solid mass at 9 o'clock position at 8 cm from the nipple. No definite internal vascularity demonstrated with color Doppler evaluation. US/US Breast RT Limited Mamm Only IMPRESSION: RIGHT BREAST: 0.6 cm hypoechoic solid mass at 9 o'clock position at 8 cm from the nipple. This could represent an area of scar tissue from previous inflammatory/infectious process or post trauma, however, biopsy is recommended for further evaluation. Suspicious findings. ASSESSMENT: BI-RADS: Category 4: Suspicious RECOMMENDATION: Biopsy recommended Findings and recommendations discussed with the patient at time of visit. This patient's information was entered into a reminder system with a target due date for their next mammogram. Electronically signed by: Nasir Vasquez MD 04/04/2025 04:15 PM [facility]
[2025-04-04 18:07] LABS: Free T4 (Free Thyroxine) 1.02 ng/dL (0.71-1.85)
[2025-04-04 18:32] LABS: Appearance Urine Cloudy; Glucose Urine UA >=1000 mg/dL (Negative); PH 5.5 (5.0-9.0); Specific Gravity - Urine 1.025 (1.005-1.025); UMIC TRIGGER UACC YES
--- OUTSIDE RECORDS SUMMARY | 2025-04-04 19:24 | XMS_ITS | Encounter Summary ---
Author Organization [employer] Address [address] [address] [place] [address] Care Team Providers Care Analytical Scientist Name Role Phone Unavailable Primary Care Provider [...]
--- OUTSIDE RECORDS SUMMARY | 2025-04-04 19:24 | XMS_ITS | Clinical Summary ---
Author Organization [employer] Address [address] [place] [address] Care Team Providers Care Factory Hand Name Role Phone Unavailable Primary Care Provider [...]
[2025-04-04 21:30] LABS: Microalbum/Creatinine Ratio Ur 8.3 ug/mg cr (<30)
[2025-04-05 04:46] LABS: HBS Num1 0.00 mIU/mL (0-7.99); HBc Num1 0.29 S/CO (0.00-0.79); Hepatitis A Antibody IgM 0.37 Index (0-0.79); ~HepC Num1 0.07 S/CO (0.00-0.79); ~Hepatitis A Antibody IgM Nonreactive (Nonreactive); ~Hepatitis B Surface Antibody NONREACTIVE (Nonreactive)
[2025-04-05 04:47] LABS: ~Hepatitis C Antibody Nonreactive (Nonreactive)
[2025-04-06 13:29] LABS: HBsAGNum1 0.31 S/CO (0.00-0.99); Hepatitis B Surface Antigen Negative (Negative)
== END 2025-04-04 15:05 | disposition home or self-care (01) ==
LOC: HO.MAMMO 15:04
PROVIDERS: PCP Nurse Practitioner Family; Visit Provider Nurse Practitioner Family
DX: N64.89 Other specified disorders of breast (principal); R74.8 Abnormal levels of other serum enzymes; R79.89 Other specified abnormal findings of blood chemistry; E55.9 Vitamin D deficiency, unspecified; E11.9 Type 2 diabetes mellitus without complications
CPT/HCPCS: 36415; 76642; 77061; 77065; 81001; 82043; 82306; 82570; 83520; 84439; 84443; 84481; 86376; 86704; 86706; 86709; 86803; 87340